=== PATIENT | female | born 1960 | race Caucasian/White ===

== ENCOUNTER 2017-03-27 15:08 | Emergency (ER) | payer OTHER ==
[2017-03-27 17:00] LABS: Hematocrit 33 % (35-47); Hemoglobin 10.4 g/dl (12.0-16.0); Mean Corpuscular HGB Conc 32 g/dl (31-36); Mean Corpuscular Hemoglobin 20 pg (27-31); Mean Platelet Volume 8 um3 (7.4-10.4); Red Blood Count 5.22 10^6/ul (4.0-5.4); Red Cell Distribution Width 18 % (10.5-15)
[2017-03-27 17:05] LABS: Comments Flag Yes; Mean Corpuscular Volume 63 fL (80-97)
[2017-03-27 17:07] LABS: Urine Bacteria Absent (Absent); Urine Bilirubin Negative (Negative); Urine Glucose Negative (Negative); Urine Nitrite Negative (Negative)
[2017-03-27 17:15] LABS: Benzodiazepine Urine Screen None Detected (None Detect)
[2017-03-27 17:16] LABS: ALT 18 U/L (7-52); AST 18 U/L (13-39); Albumin 4.3 g/dL (3.2-5.2); Alkaline Phosphatase 47 U/L (34-104); Anion Gap 5 mmol/L (2-11); Blood Urea Nitrogen 20 mg/dL (6-24); CO2 Carbon Dioxide 27 mmol/L (22-32); Calcium 9.5 mg/dL (8.6-10.3); Chloride 107 mmol/L (101-111); EGFR African American 82.2 (>60); EGFR Non-African American 63.9 (>60); Globulin 2.9 g/dL (2-4); Glucose 89 mg/dL (70-100); Potassium 3.8 mmol/L (3.5-5.0); Sodium 139 mmol/L (133-145); Total Protein 7.2 g/dL (6.4-8.9)
[2017-03-27 17:19] LABS: Acetaminophen < 15 mcg/mL; Alcohol < 10 mg/dL (<10); Lithium < 0.10 mmol/L (0.6-1.2); Salicylate < 2.50 mg/dL (<30)
[2017-03-27 17:24] VITALS: BP 158/76
[2017-03-27 17:25] LABS: TSH (Thyroid Stimulating Horm) 3.51 mcIU/mL (0.34-5.60)
--- NOTE | 2017-03-28 23:01 | ED ---
Annette Mccallum SooYoung, scribed for Pedro Duran MD on 03/27/17 at 1609 . Psychiatric Complaint - HPI Summary HPI Summary: A 56 y/o F presents to ED for MHE/941 due to SI. Pt states she is overwhelmed with her divorce, but denies SI, says her friend was worried which is why she was brought in by police. Associated sx: sleep disruption. Denies changes in PO intake. Pt states being in [place] during the revolution and losing her brother, she didn't leave until 1994. Pert PMHx: PTSD, bipolar disorder. Pt takes Cymbalta and lithium. Denies prev hospitalizations. Out patient treatment for anxiety, depression. Denies ETOH use. - History Of Current Complaint Chief Complaint: EDMentalHealth Time Seen by Provider: 03/27/17 15:42 Hx Obtained From: Patient Onset/Duration: Gradual Onset, Still Present Character: Depressed Associated Signs And Symptoms: Positive: Sleep Disturbance. Negative: Appetite Change Related History: Positive For: Prior Psychiatric Issues Has Suicidal: Reports: Thoughts - denies SI at bedside - Allergies/Home Medications Allergies/Adverse Reactions: Allergies Allergy/AdvReac Type Severity Reaction Status Date / Time No Known Allergies Allergy Verified 10/02/15 13:03 Home Medications: Home Medications DULoxetine DR CAP* [Cymbalta CAP*] 60 mg PO DAILY 03/27/17 [History Confirmed ] Gabapentin CAP(*) [Neurontin 100 mg CAP(*)] 100 mg PO BID 03/27/17 [History Confirmed 03/27/17] [place] Carbonate TAB* 300 mg PO DAILY 03/27/17 [History Confirmed 03/27/17] PMH/Surg Hx/FS Hx/Imm Hx Previously Healthy: No Endocrine/Hematology History: Denies: Hx Diabetes, Hx Thyroid Disease Cardiovascular History: Denies: Hx Congestive Heart Failure, Hx Deep Vein Thrombosis, Hx Hypertension , Hx Myocardial Infarction, Hx Pacemaker/ICD Respiratory History: Denies: Hx Asthma, Hx Chronic Obstructive Pulmonary Disease (COPD), Hx Lung Cancer, Hx Pneumonia, Hx Pulmonary Embolism GI History: Denies: Hx Gall Bladder Disease, Hx Gastrointestinal Bleed, Hx Ulcer, Hx Urosepsis History: Denies: Hx Kidney Stones, Hx Renal Disease Musculoskeletal History: Denies: Hx Rheumatoid Arthritis, Hx Osteoporosis Sensory History: Reports: Hx Contacts or Glasses Opthamlomology History: Reports: Hx Contacts or Glasses Neurological History: Denies: Hx Dementia, Hx Migraine, Hx Seizures, Hx Transient Ischemic Attacks (TIA) Psychiatric History: Reports: Hx Anxiety, Hx Depression, Hx Post Traumatic Stress Disorder, Hx Bipolar Disorder Denies: Hx Eating Disorder, Hx of Violent Episodes Against Others - Surgical History Surgery Procedure, Year, and Place: Appendectomy. B/L carpal tunnel Infectious Disease History: No Infectious Disease History: Denies: Hx Clostridium Difficile, Traveled Outside the [place] in Last 30 Days - Family History Known Family History: Positive: Unknown - Social History Occupation: Unemployed - OTHER Lives: With Family Alcohol Use: None Hx Substance Use: No Substance Use Type: Reports: None Hx Tobacco Use: Yes Smoking Status (MU): Light Every Day Tobacco Smoker Type: Cigarettes Have You Smoked in the Last Year: No Review of Systems Negative: Fever, Chills Negative: Erythema Negative: Sore Throat Negative: Chest Pain Negative: Shortness Of Breath, Cough Negative: Abdominal Pain, Vomiting, Nausea Negative: dysuria, hematuria Negative: Myalgia, Edema Negative: Rash Neurological: Other - neg: dizziness Positive: Anxious, Depressed, Other - pos: tearful; SI All Other Systems Reviewed And Are Negative: Yes Physical Exam - Summary Physical Exam Summary: Constitutional: Well-developed, Well-nourished, Alert. TEARFUL. NO ATAXIA. Skin: Warm, Dry HENT: Normocephalic; Atraumatic Eyes: Conjunctiva normal; NO NYSTAGMUS Neck: Musculoskeletal ROM normal neck. (-) JVD, (-) Stridor, (-) Tracheal deviation Cardio: Rhythm regular, rate normal, Heart sounds normal; Intact distal pulses; The pedal pulses are 2+ and symmetric. Radial pulses are 2+ and symmetric. (-) Murmur Pulmonary/Chest wall: Effort normal. (-) Respiratory distress, (-) Wheezes, (-) Rales Abd: Soft, (-) Tenderness, (-) Distension, (-) Guarding, (-) Rebound Musculoskeletal: (-) Edema Lymph: (-) Cervical adenopathy Neuro: Alert, Oriented x3 Psych: TEARFUL Triage Information Reviewed: Yes Vital Signs On Initial Exam: Initial Vitals Temp Pulse Resp BP Pulse Ox 98.1 F 75 18 165/97 100 03/27/17 15:13 03/27/17 15:13 03/27/17 15:13 03/27/17 15:13 03/27/17 15:13 Vital Signs Reviewed: Yes Diagnostics - Vital Signs Vital Signs Temp Pulse Resp BP Pulse Ox 03/27/17 15:27 99 F 75 18 165/97 100 03/27/17 15:13 98.1 F 75 18 165/97 100 - Laboratory Lab Results: Lab Results 03/27/17 03/27/17 03/27/17 Range/Units 16:39 16:39 16:39 WBC 8.0 (3.5-10.8) 10^3/ul RBC 5.22 (4.0-5.4) 10^6/ul Hgb 10.4 L (12.0-16.0) g/dl Hct 33 L (35-47) % MCV 63 L (80-97) fL MCH 20 L (27-31) pg MCHC 32 (31-36) g/dl RDW 18 H (10.5-15) % Plt Count 262 (150-450) 10^3/ul MPV 8 (7.4-10.4) um3 Neut % (Auto) 80.0 (38-83) % Lymph % (Auto) 13.0 L (25-47) % [place] % (Auto) 5.0 (1-9) % Eos % (Auto) 1.4 (0-6) % Baso % (Auto) 0.6 (0-2) % Absolute Neuts (auto) 6.4 (1.5-7.7) 10^3/ul Absolute Lymphs (auto) 1.0 (1.0-4.8) 10^3/ul Absolute Monos (auto) 0.4 (0-0.8) 10^3/ul Absolute Eos (auto) 0.1 (0-0.6) 10^3/ul Absolute Basos (auto) 0 (0-0.2) 10^3/ul Absolute Nucleated RBC 0 10^3/ul Nucleated RBC % 0 Sodium 139 (133-145) mmol/L Potassium 3.8 (3.5-5.0) mmol/L Chloride 107 (101-111) mmol/L Carbon Dioxide 27 (22-32) mmol/L Anion Gap 5 (2-11) mmol/L BUN 20 (6-24) mg/dL Creatinine 0.91 (0.51-0.95) mg/dL Est GFR ( Amer) 82.2 (>60) Est GFR (Non-Af Amer) 63.9 (>60) BUN/Creatinine Ratio 22.0 H (8-20) Glucose 89 (70-100) mg/dL Calcium 9.5 (8.6-10.3) mg/dL Total Bilirubin 0.50 (0.2-1.0) mg/dL AST 18 (13-39) U/L ALT 18 (7-52) U/L Alkaline Phosphatase 47 (34-104) U/L Total Protein 7.2 (6.4-8.9) g/dL Albumin 4.3 (3.2-5.2) g/dL Globulin 2.9 (2-4) g/dL Albumin/Globulin Ratio 1.5 (1-3) TSH 3.51 (0.34-5.60) mcIU/mL Urine Color Straw Urine Appearance Clear Urine pH 6.0 (5-9) Ur Specific [place] 1.006 L (1.010-1.030) Urine Protein Negative (Negative) Urine Ketones Negative (Negative) Urine Blood 1+ H (Negative) Urine Nitrate Negative (Negative) Urine Bilirubin Negative (Negative) Urine Urobilinogen Negative (Negative) Ur Leukocyte Esterase 1+ H (Negative) Urine WBC (Auto) Trace(0-5/hpf) (Absent) Urine RBC (Auto) Trace(0-2/hpf) (Absent) Urine Bacteria Absent (Absent) Urine Glucose Negative (Negative) Salicylates < 2.50 (<30) mg/dL Urine Opiates Screen (None Detect) Acetaminophen < 15 mcg/mL Ur Barbiturates Screen (None Detect) Ur Phencyclidine Scrn (None Detect) Ur Amphetamines Screen (None Detect) U Benzodiazepines Scrn (None Detect) [place] < 0.10 L (0.6-1.2) mmol/L Urine Cocaine Screen (None Detect) U Cannabinoids Screen (None Detect) Serum Alcohol < 10 (<10) mg/dL 03/27/17 Range/Units 16:39 WBC (3.5-10.8) 10^3/ul RBC (4.0-5.4) 10^6/ul Hgb (12.0-16.0) g/dl Hct (35-47) % MCV (80-97) fL MCH (27-31) pg MCHC (31-36) g/dl RDW (10.5-15) % Plt Count (150-450) 10^3/ul MPV (7.4-10.4) um3 Neut % (Auto) (38-83) % Lymph % (Auto) (25-47) % [place] % (Auto) (1-9) % Eos % (Auto) (0-6) % Baso % (Auto) (0-2) % Absolute Neuts (auto) (1.5-7.7) 10^3/ul Absolute Lymphs (auto) (1.0-4.8) 10^3/ul Absolute Monos (auto) (0-0.8) 10^3/ul Absolute Eos (auto) (0-0.6) 10^3/ul Absolute Basos (auto) (0-0.2) 10^3/ul Absolute Nucleated RBC 10^3/ul Nucleated RBC % Sodium (133-145) mmol/L Potassium (3.5-5.0) mmol/L Chloride (101-111) mmol/L Carbon Dioxide (22-32) mmol/L Anion Gap (2-11) mmol/L BUN (6-24) mg/dL Creatinine (0.51-0.95) mg/dL Est GFR ( Amer) (>60) Est GFR (Non-Af Amer) (>60) BUN/Creatinine Ratio (8-20) Glucose (70-100) mg/dL Calcium (8.6-10.3) mg/dL Total Bilirubin (0.2-1.0) mg/dL AST (13-39) U/L ALT (7-52) U/L Alkaline Phosphatase (34-104) U/L Total Protein (6.4-8.9) g/dL Albumin (3.2-5.2) g/dL Globulin (2-4) g/dL Albumin/Globulin Ratio (1-3) TSH (0.34-5.60) mcIU/mL Urine Color Urine Appearance Urine pH (5-9) Ur Specific [place] (1.010-1.030) Urine Protein (Negative) Urine Ketones (Negative) Urine Blood (Negative) Urine Nitrate (Negative) Urine Bilirubin (Negative) Urine Urobilinogen (Negative) Ur Leukocyte Esterase (Negative) Urine WBC (Auto) (Absent) Urine RBC (Auto) (Absent) Urine Bacteria (Absent) Urine Glucose (Negative) Salicylates (<30) mg/dL Urine Opiates Screen None detected (None Detect) Acetaminophen mcg/mL Ur Barbiturates Screen None detected (None Detect) Ur Phencyclidine Scrn None detected (None Detect) Ur Amphetamines Screen None detected (None Detect) U Benzodiazepines Scrn None detected (None Detect) [place] (0.6-1.2) mmol/L Urine Cocaine Screen None detected (None Detect) U Cannabinoids Screen None detected (None Detect) Serum Alcohol (<10) mg/dL Result Diagrams: 03/27/17 16:39 03/27/17 16:39 Lab Statement: Any lab studies that have been ordered have been reviewed, and results considered in the medical decision making process. Course/Dx - Course Course Of Treatment: Pt is a 56 y/o F presenting for E/941. Pt states she is overwhelmed with her divorce, but denies SI at bedside. Associated sx: sleep disruption. Denies changes in PO intake. Pert PMHx: PTSD, bipolar disorder. Pt takes Cymbalta and lithium. Denies prev hospitalizations. Denies ETOH use. Pt is medically clear for MHE at 1610. SO pending MHE. - Differential Dx/Clinical Impression Provider Diagnosis: Suicidal ideation Discharge - Discharge Plan Condition: Stable Disposition: HOME Discharge Disposition Comment: SO pending MHE. Referrals: Emily Cantrell MD [Primary Care Provider] - Additional Instructions: Return to the emergency department for changing or worsening or persistent symptoms. The documentation as recorded by the Annette bustillos SooYoung accurately reflects the service I personally performed and the decisions made by , Pedro Duran MD.
== END 2017-03-27 20:12 | disposition home or self-care (01) ==
LOC: ED 15:08
DX: F32.9 Major depressive disorder, single episode, unspecified (principal); R45.851 Suicidal ideations; F41.9 Anxiety disorder, unspecified
CPT/HCPCS: 36415; 80053; 80178; 80307; 80320; 80329; 81003; 81015; 84443; 85025; 87086; 99283; G0480

== ENCOUNTER 2018-01-20 17:37 | Emergency (ER) | payer OTHER, MEDICAID ==
--- NOTE | 2018-01-20 21:53 | RAD ---
CLINICAL HISTORY: Left flank pain. Relevant surgical history includes appendectomy. COMPARISON: None TECHNIQUE: Noncontrast CT examination of the abdomen and pelvis from the lung bases through the initial tuberosities. FINDINGS: VISUALIZED LUNG BASES: The visualized lung bases are grossly clear. There is no pleural effusion. ABDOMEN AND PELVIS: Evaluation of the solid organs and vasculature is limited without intravenous contrast. The liver, spleen, pancreas and adrenal glands are grossly normal in appearance. The gallbladder is normal. The kidneys are normal in appearance without focal mass, calcification or signs of hydronephrosis. Evaluation of the gastrointestinal tract is limited without oral contrast. The small and large bowel are not distended. Consistent with the patient's surgical history, the appendix is not seen. There are surgical material at the base of the cecum. There is gas and stool throughout the length of the colon. There is no gross retroperitoneal or mesenteric lymphadenopathy. There is trace free fluid in the dependent-most portion of the pelvis (axial image 111). The pelvic viscera is normal in appearance. The abdominal aorta and iliac arteries are normal in course and diameter. Degenerative changes include mild multilevel loss of intervertebral disc height involving the lower thoracic and lumbar spine.There are no sinister bone lesions. IMPRESSION: 1. Trace free fluid in the dependent-most portion of the pelvis. 2. No renal calculi or signs of hydronephrosis. 3. Chronic, degenerative and iatrogenic findings as described by the report.
[2018-01-20 21:57] LABS: ABS Basophils 0.1 10^3/ul (0-0.2); ABS Eosinophils 0.4 10^3/ul (0-0.6); ABS Lymphocytes 1.7 10^3/ul (1.0-4.8); ABS Monocytes 0.4 10^3/ul (0-0.8); ABS Nucleated RBC 0 10^3/ul; Eosinophil % 6.3 % (0-6); Hematocrit 34 % (35-47); Lymphocyte % 25.6 % (25-47); Mean Corpuscular HGB Conc 33 g/dl (31-36); Mean Corpuscular Hemoglobin 20 pg (27-31); Mean Corpuscular Volume 63 fL (80-97); Mean Platelet Volume 8.4 um3 (7.4-10.4); Nucleated Red Blood Cells % 0.1; Platelet Count 297 10^3/ul (150-450); Red Cell Distribution Width 17 % (10.5-15); White Blood Count 6.5 10^3/ul (3.5-10.8)
[2018-01-20 22:07] LABS: EGFR Non-African American 58.5 (>60)
[2018-01-20 22:15] LABS: INR 11.09 (0.77-1.02)
[2018-01-20 22:22] LABS: Urine Appearance Clear; Urine Blood 2+ (Negative); Urine Color Yellow; Urine Ketones Negative (Negative); Urine Protein Negative (Negative); Urine Specific Gravity 1.011 (1.010-1.030); Urine Urobilinogen Negative (Negative)
--- NOTE | 2018-01-20 22:47 | ED ---
Elvi Mccallum Emily, scribed for Kenny Olvera MD on 01/20/18 at 2032 . Abdominal Pain/Female - HPI Summary HPI Summary: This patient is a 57 year old F presenting to [facility] with a chief complaint of diffuse abd pain that began [employer]. The patient rates the pain 8/10 in severity. Symptoms aggravated by nothing. Symptoms alleviated by nothing. Patient reports pelvic pain, fever, and SOB. Patient denies diarrhea and cough. - History of Current Complaint Chief Complaint: EDAbdPain Stated Complaint: ABD PAIN/SOB Hx Obtained From: Patient Onset/Duration: Sudden Onset, Lasting Days, Still Present Timing: Constant Severity Initially: Severe Severity Currently: Severe Pain Intensity: 8 Pain Scale Used: 0-10 Numeric Location: Diffuse Radiates: No Aggravating Factor(s): Nothing Alleviating Factor(s): Nothing Associated Signs and Symptoms: Positive: Other: - Positive pelvic pain, fever, and SOB. Negative diarrhea and cough. Allergies/Adverse Reactions: Allergies Allergy/AdvReac Type Severity Reaction Status Date / Time aspirin Allergy GI Upset Verified 01/20/18 20:45 PMH/Surg Hx/FS Hx/Imm Hx Previously Healthy: No Endocrine/Hematology History: Denies: Hx Diabetes, Hx Thyroid Disease Cardiovascular History: Denies: Hx Congestive Heart Failure, Hx Deep Vein Thrombosis, Hx Hypertension , Hx Myocardial Infarction, Hx Pacemaker/ICD Respiratory History: Denies: Hx Asthma, Hx Chronic Obstructive Pulmonary Disease (COPD), Hx Lung Cancer, Hx Pneumonia, Hx Pulmonary Embolism GI History: Denies: Hx Gall Bladder Disease, Hx Gastrointestinal Bleed, Hx Ulcer, Hx Urosepsis History: Denies: Hx Kidney Stones, Hx Renal Disease Musculoskeletal History: Denies: Hx Rheumatoid Arthritis, Hx Osteoporosis Sensory History: Reports: Hx Contacts or Glasses Opthamlomology History: Reports: Hx Contacts or Glasses Neurological History: Denies: Hx Dementia, Hx Migraine, Hx Seizures, Hx Transient Ischemic Attacks (TIA) Psychiatric History: Reports: Hx Anxiety, Hx Depression, Hx Post Traumatic Stress Disorder, Hx Bipolar Disorder Denies: Hx Eating Disorder, Hx of Violent Episodes Against Others - Surgical History Surgery Procedure, Year, and Place: Appendectomy. B/L carpal tunnel Infectious Disease History: No Infectious Disease History: Denies: Hx Clostridium Difficile, Traveled Outside the [place] in Last 30 Days - Family History Known Family History: Positive: Unknown - Social History Occupation: Unemployed Lives: Alone Alcohol Use: None Hx Substance Use: No Substance Use Type: Reports: None Hx Tobacco Use: Yes Smoking Status (MU): Light Every Day Tobacco Smoker Type: Cigarettes Have You Smoked in the Last Year: No Review of Systems Positive: Fever Positive: Shortness Of Breath. Negative: Cough Positive: Abdominal Pain. Negative: Diarrhea Positive: Other - Positive pelvic pain All Other Systems Reviewed And Are Negative: Yes Physical Exam - Summary Physical Exam Summary: Appearance: Well-appearing, Well-nourished Skin: Warm Eyes: Normal ENT: Normal Neck: Supple, nontender Respiratory: Clear to auscultation Cardiovascular: Regular rate, regular rhythm. Normal S1, S2. Abdomen: Soft, mild diffuse tenderness Musculoskeletal: Normal, Strength/ROM Intact Neurological: Normal, A&Ox3 Psychiatric: Normal General: No acute distress Triage Information Reviewed: Yes Vital Signs On Initial Exam: Initial Vitals Temp Pulse Resp BP Pulse Ox 98.7 F 74 16 151/90 100 01/20/18 17:49 01/20/18 17:49 01/20/18 17:49 01/20/18 17:49 01/20/18 17:49 Vital Signs Reviewed: Yes Abdomen Description: Positive: Soft, Distended Diagnostics - Vital Signs Vital Signs Temp Pulse Resp BP Pulse Ox 01/20/18 17:49 98.7 F 74 16 151/90 100 - Laboratory Lab Results: Lab Results 01/20/18 01/20/18 01/20/18 Range/Units 21:35 21:35 21:35 WBC 6.5 (3.5-10.8) 10^3/ul RBC 5.40 (4.0-5.4) 10^6/ul Hgb 11.0 L (12.0-16.0) g/dl Hct 34 L (35-47) % MCV 63 L (80-97) fL MCH 20 L (27-31) pg MCHC 33 (31-36) g/dl RDW 17 H (10.5-15) % Plt Count 297 (150-450) 10^3/ul MPV 8.4 (7.4-10.4) um3 Neut % (Auto) 61.3 (38-83) % Lymph % (Auto) 25.6 (25-47) % [place] % (Auto) 5.8 (0-7) % Eos % (Auto) 6.3 H (0-6) % Baso % (Auto) 1.0 (0-2) % Absolute Neuts (auto) 4.0 (1.5-7.7) 10^3/ul Absolute Lymphs (auto) 1.7 (1.0-4.8) 10^3/ul Absolute Monos (auto) 0.4 (0-0.8) 10^3/ul Absolute Eos (auto) 0.4 (0-0.6) 10^3/ul Absolute Basos (auto) 0.1 (0-0.2) 10^3/ul Absolute Nucleated RBC 0 10^3/ul Nucleated RBC % 0.1 INR (Anticoag Therapy) 11.09 H* (0.77-1.02) Sodium 138 L (139-145) mmol/L Potassium 3.9 (3.5-5.0) mmol/L Chloride 105 (101-111) mmol/L Carbon Dioxide 28 (22-32) mmol/L Anion Gap 5 (2-11) mmol/L BUN 15 (6-24) mg/dL Creatinine 0.98 H (0.51-0.95) mg/dL Est GFR ( Amer) 75.2 (>60) Est GFR (Non-Af Amer) 58.5 (>60) BUN/Creatinine Ratio 15.3 (8-20) Glucose 89 (70-100) mg/dL Lactic Acid (0.5-2.0) mmol/L Calcium 9.8 (8.6-10.3) mg/dL Total Bilirubin 0.20 (0.2-1.0) mg/dL AST 17 (13-39) U/L ALT 13 (7-52) U/L Alkaline Phosphatase 70 (34-104) U/L Troponin I 0.00 (<0.04) ng/mL C-Reactive Protein < 1.00 (< 5.00) mg/L Total Protein 7.6 (6.4-8.9) g/dL Albumin 4.6 (3.2-5.2) g/dL Globulin 3.0 (2-4) g/dL Albumin/Globulin Ratio 1.5 (1-3) Lipase 15 (11.0-82.0) U/L Urine Color Urine Appearance Urine pH (5-9) Ur Specific [place] (1.010-1.030) Urine Protein (Negative) Urine Ketones (Negative) Urine Blood (Negative) Urine Nitrate (Negative) Urine Bilirubin (Negative) Urine Urobilinogen (Negative) Ur Leukocyte Esterase (Negative) Urine WBC (Auto) (Absent) Urine RBC (Auto) (Absent) Ur Squamous Epith Cells (Absent) Urine Bacteria (Absent) Urine Glucose (Negative) 01/20/18 01/20/18 Range/Units 21:35 22:00 WBC (3.5-10.8) 10^3/ul RBC (4.0-5.4) 10^6/ul Hgb (12.0-16.0) g/dl Hct (35-47) % MCV (80-97) fL MCH (27-31) pg MCHC (31-36) g/dl RDW (10.5-15) % Plt Count (150-450) 10^3/ul MPV (7.4-10.4) um3 Neut % (Auto) (38-83) % Lymph % (Auto) (25-47) % [place] % (Auto) (0-7) % Eos % (Auto) (0-6) % Baso % (Auto) (0-2) % Absolute Neuts (auto) (1.5-7.7) 10^3/ul Absolute Lymphs (auto) (1.0-4.8) 10^3/ul Absolute Monos (auto) (0-0.8) 10^3/ul Absolute Eos (auto) (0-0.6) 10^3/ul Absolute Basos (auto) (0-0.2) 10^3/ul Absolute Nucleated RBC 10^3/ul Nucleated RBC % INR (Anticoag Therapy) (0.77-1.02) Sodium (139-145) mmol/L Potassium (3.5-5.0) mmol/L Chloride (101-111) mmol/L Carbon Dioxide (22-32) mmol/L Anion Gap (2-11) mmol/L BUN (6-24) mg/dL Creatinine (0.51-0.95) mg/dL Est GFR ( Amer) (>60) Est GFR (Non-Af Amer) (>60) BUN/Creatinine Ratio (8-20) Glucose (70-100) mg/dL Lactic Acid 0.7 (0.5-2.0) mmol/L Calcium (8.6-10.3) mg/dL Total Bilirubin (0.2-1.0) mg/dL AST (13-39) U/L ALT (7-52) U/L Alkaline Phosphatase (34-104) U/L Troponin I (<0.04) ng/mL C-Reactive Protein (< 5.00) mg/L Total Protein (6.4-8.9) g/dL Albumin (3.2-5.2) g/dL Globulin (2-4) g/dL Albumin/Globulin Ratio (1-3) Lipase (11.0-82.0) U/L Urine Color Yellow Urine Appearance Clear Urine pH 6.0 (5-9) Ur Specific [place] 1.011 (1.010-1.030) Urine Protein Negative (Negative) Urine Ketones Negative (Negative) Urine Blood 2+ A (Negative) Urine Nitrate Negative (Negative) Urine Bilirubin Negative (Negative) Urine Urobilinogen Negative (Negative) Ur Leukocyte Esterase Trace A (Negative) Urine WBC (Auto) 1+(6-10/hpf) A (Absent) Urine RBC (Auto) 3+(>10/hpf) A (Absent) Ur Squamous Epith Cells Present A (Absent) Urine Bacteria Absent (Absent) Urine Glucose Negative (Negative) Result Diagrams: 01/20/18 21:35 01/20/18 21:35 Lab Statement: Any lab studies that have been ordered have been reviewed, and results considered in the medical decision making process. - CT CT Abdomen/Pelvis CT Interpretation Completed By: Radiologist - Abdomen/Pelvis CT reveals, per radiologist, 1. Trace free fluid in the dependent-most portion of the pelvis. 2. No renal calculi or signs of hydronephrosis. 3. Chronic, degenerative and iatrogenic findings as described by the report. ED physician has reviewed this radiology report. - EKG 1912 Cardiac Rate: NL EKG Rhythm: Sinus Rhythm - 61 BPM EKG Interpretation: No STT wave changes or T wave inversions Abdominal Pain Fem Course/Dx - Course Course Of Treatment: INR 11- pt NOT on any blood thinner medication per pt, but exhibits no signs of bleed. UA mildly dirty- pt has No urinary sx. CT A&P no abd pathology to explain pt's current sx, except some bowel gas - Diagnoses Provider Diagnoses: Abdomen enlarged, Abdominal distension, gaseous Discharge - Sign-Out/Discharge Documenting (check all that apply): Discharge - Discharge Plan Condition: Stable Disposition: HOME Patient Education Materials: Gas and Bloating (ED) Referrals: Emily Cantrell MD [Primary Care Provider] - Additional Instructions: please follow up with your primary doctor for re-check of your elevated INR - Billing Disposition and Condition Condition: STABLE Disposition: HOME The documentation as recorded by the Elvi bustillos Emily accurately reflects the service I personally performed and the decisions made by , Kenny Olvera MD.
[2018-01-20] MEDS ORDERED: Phytonadione INJ (Adult)* 10 MG/ML 1 ML AMP SUBCUT ONE (23:08)
[2018-01-21 00:41] LABS: INR 11.46 (0.77-1.02)
[2018-01-21 01:25] VITALS: BP 114/63
== END 2018-01-21 01:26 | disposition home or self-care (01) ==
LOC: ED 17:37
DX: R14.0 Abdominal distension (gaseous) (principal); F17.210 Nicotine dependence, cigarettes, uncomplicated
CPT/HCPCS: 36415; 74176; 80053; 81003; 81015; 83605; 83690; 84484; 85025; 85610; 86140; 87086; 93005; 96372; 99283; J3430

== ENCOUNTER 2018-01-22 13:58 | Emergency (ER) | payer OTHER, MEDICAID ==
[2018-01-22 14:18] VITALS: BP 133/80
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
== END 2018-01-22 14:40 | disposition home or self-care (01) ==
LOC: UCEAST 13:58
DX: R10.9 Unspecified abdominal pain (principal); D68.9 Coagulation defect, unspecified; Z87.891 Personal history of nicotine dependence; Z88.6 Allergy status to analgesic agent; Z88.8 Allergy status to other drugs, medicaments and biological substances
CPT/HCPCS: 99212; G0463

== ENCOUNTER 2018-01-25 11:02 | Inpatient (IN) | payer OTHER, MEDICAID ==
[2018-01-25 12:18] LABS: ABS Basophils 0.1 10^3/ul (0-0.2); ABS Eosinophils 0.5 10^3/ul (0-0.6); ABS Lymphocytes 1.1 10^3/ul (1.0-4.8); ABS Monocytes 0.5 10^3/ul (0-0.8); ABS Neutrophils 5.8 10^3/ul (1.5-7.7); ABS Nucleated RBC 0 10^3/ul; Eosinophil % 6.1 % (0-6); Hematocrit 30 % (35-47); Hemoglobin 9.5 g/dl (12.0-16.0); Mean Corpuscular HGB Conc 32 g/dl (31-36); Mean Corpuscular Hemoglobin 20 pg (27-31); Mean Corpuscular Volume 63 fL (80-97); Mean Platelet Volume 8.4 um3 (7.4-10.4); Nucleated Red Blood Cells % 0; Platelet Count 237 10^3/ul (150-450); Red Blood Count 4.74 10^6/ul (4.0-5.4); Red Cell Distribution Width 17 % (10.5-15); White Blood Count 7.9 10^3/ul (3.5-10.8)
--- OUTSIDE RECORDS SUMMARY | 2018-01-25 12:24 | XMS REPORT ---
:1960 External Reference #:[id number] Author Organization [employer] Address [address] [address] Phone [phone] Care Team Providers Name Role Phone Emily Cantrell MD Primary Care Physician Unavailable Payers Type Date Identification Numbers Payment Provider Subscriber Commercial Effective: Policy Number: [id number] [employer] ayanna rizvi 2013 PayID: [id number] [address] [place] [address] Medigap Part B Policy Number: [id number] Medicaid [employer] Name: 1 1 [address] PayID: [id number] [place] [address] Problems Date Description Provider Status Onset: 11/22/2013 Depressive disorder Emily Cantrell M.D. Active Onset: 06/28/2016 Thalassemia Emily Cantrell M.D. 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 - allow to dissolve slowly Gabapentin 09/25/ Active Capsules 300mg 90cap 1 by mouth 2016 s at hs Desmond Cantrell Duloxetine HCL 09/25/ Active Caps 30mg 30cap 3 by mouth 2016 Part s every day Qamar Cantrell. Lorazepam 09/25/ Active Tablets 1mg 60tab 2 po qd as 2016 s needed for [place], anxiety M.D. Gabapentin 08/27/ Active Capsules 100mg 60cap take 1-3 M25.511 2014 s capsules at [place], bedtime M.D. [place] / Active Capsules 300mg 30cap 1 by mouth Juan, Carbonate 0000 s every Lidia morning LADARIUS Giron PHD Amoxicillin / Active Tablets 875mg take 2 Unknown 0000 tablets by mouth immediately then take 1 tablet twice a day Ketorolac / Active Tablets 10mg Not Unknown Tromethamine 0000 taking----ta ke 2 tablets by mouth every 4 to 6 hours Post Injection Then 1 ... Prevacid 06/28/ Hx Capsules 30mg 30cap 1 by mouth R10.13 Emily 2016 - s every day [place], M.D. 2015 Tramadol HCL 08/27/ Hx Tablets 50mg 30tab 1-2 tablets 2013 - s every 4-6 [place], 08/19/ hours as M.D. 2015 needed for pain. Lexapro 11/22/ Hx Tablets 20mg 30tab 1 po qd 2013 - s [place], M.D. 2013 Escitalopram / Hx Tablets 20mg not taking Juan, Oxalate 0000 - Lidia 12/18/ LADARIUS Giron 2017 PHD Lorazepam / Hx Tablets 1mg 1 once daily Unknown 0000 - as needed 2014 Immunizations CPT Code Status Date Vaccine Lot # [id number] Given 08/27/2015 Influenza Virus Vaccine, Quadrivalent, Split, [id number] Preservative Free [id number] Given 05/31/2014 Flu Vaccine Split Virus Preservative Free For Indiv 3Yr Older Vital Signs Date Vital Result Comment 01/23/2018 Weight 134.00 lb Heart Rate 66 /min BP Systolic 124 mmHg BP Diastolic 72 mmHg Body Temperature 97.3 F O2 % BldC Oximetry 98 % 12/15/2017 Weight 137.00 lb Heart Rate 71 /min BP Systolic Sitting 138 mmHg BP Diastolic Sitting 82 mmHg Pain Level 5 O2 % BldC Oximetry 98 % 09/25/2017 Height 61.5 inches 5'1.50" Weight 123.00 lb Heart Rate 71 /min BP Systolic 120 mmHg BP Diastolic 70 mmHg O2 % BldC Oximetry 98 % BMI (Body Mass Index) 22.9 kg/m2 08/19/2016 Weight 117.00 lb Heart Rate 57 /min BP Systolic 122 mmHg BP Diastolic 70 mmHg Body Temperature 98.5 F O2 % BldC Oximetry 98 % 06/28/2016 Weight 118.00 lb with shoes Heart Rate 84 /min BP Systolic Sitting 120 mmHg BP Diastolic Sitting 72 mmHg Body Temperature 97.1 F O2 % BldC Oximetry 98 % 11/26/2015 Height 61.5 inches 5'1.50" Weight 134.00 lb Heart Rate 60 /min BP Systolic Sitting 130 mmHg BP Diastolic Sitting 66 mmHg Respiratory Rate 14 /min Body Temperature 97.4 F Pain Level 0 O2 % BldC Oximetry 99 % BMI (Body Mass Index) 24.9 kg/m2 08/27/2015 Weight 137.75 lb pt doesnt want to know Heart Rate 62 /min BP Systolic Sitting 139 mmHg BP Diastolic Sitting 82 mmHg Body Temperature 98.4 F Pain Level 5 O2 % BldC Oximetry 98 % 04/08/2015 Weight 131.00 lb Heart Rate 70 /min BP Systolic Sitting 118 mmHg BP Diastolic Sitting 77 mmHg Body Temperature 97.7 F 03/18/2015 Height 61.75 inches 5'1.75" Weight 131.50 lb Heart Rate 65 /min BP Systolic Sitting 110 mmHg BP Diastolic Sitting 70 mmHg Pain Level 8 O2 % BldC Oximetry 98 % BMI (Body Mass Index) 24.2 kg/m2 11/25/2014 Height 61.75 inches 5'1.75" Weight 133.00 lb Heart Rate 64 /min BP Systolic Sitting 125 mmHg BP Diastolic Sitting 78 mmHg O2 % BldC Oximetry 98 % BMI (Body Mass Index) 24.5 kg/m2 08/27/2014 Height 61.75 inches 5'1.75" Weight 128.00 lb Heart Rate 68 /min BP Systolic Sitting 124 mmHg BP Diastolic Sitting 70 mmHg BMI (Body Mass Index) 23.6 kg/m2 08/04/2014 Height 61.75 inches 5'1.75" Weight 128.00 lb shoes on Heart Rate 84 /min BP Systolic Sitting 118 mmHg BP Diastolic Sitting 70 mmHg BMI (Body Mass Index) 23.6 kg/m2 11/22/2013 Height 61.75 inches 5'1.75" Weight 124.00 lb Heart Rate 76 /min BP Systolic Sitting 118 mmHg BP Diastolic Sitting 72 mmHg Respiratory Rate 16 /min Body Temperature 98.9 F BMI (Body Mass Index) 22.9 kg/m2 Results Test Date Test Result H/L Range Note Inr/Protime 01/20/2018 Inr 11.46 High 0.77-1.02 1 Urinalysis Profile 01/20/2018 Urine Color Yellow Urine Appearance Clear Urine Specific [place] 1.011 1.010-1.030 Urine pH 6.0 5-9 Urine Urobilinogen Negative Negative Urine Ketones Negative Negative Urine Protein Negative Negative Urine Leukocytes Trace Negative Urine Blood 2+ Negative Urine Nitrite Negative Negative Urine Bilirubin Negative Negative Urine Glucose Negative Negative Urine White Blood Cell 1+(6-10/hpf) Absent Urine Red Blood Cell 3+(>10/hpf) Absent Urine Bacteria Absent Absent Urine Squamous Epithelial Cell Present Absent Urine Culture And 01/20/2018 Urine Culture SEE RESULT BELOW 2 Sensitivities CBC Auto Diff 01/20/2018 White Blood Count 6.5 10^3/uL 3.5-10.8 Red Blood Count 5.40 10^6/uL 4.0-5.4 Hemoglobin 11.0 g/dL Low 12.0-16.0 Hematocrit 34 % Low 35-47 Mean Corpuscular Volume 63 fL Low 80-97 3 Mean Corpuscular Hemoglobin 20 pg Low 27-31 Mean Corpuscular HGB Conc 33 g/dL 31-36 Red Cell Distribution Width 17 % High 10.5-15 Platelet Count 297 10^3/uL 150-450 Mean Platelet Volume 8.4 um3 7.4-10.4 Abs Neutrophils 4.0 10^3/uL 1.5-7.7 Abs Lymphocytes 1.7 10^3/uL 1.0-4.8 Abs Monocytes 0.4 10^3/uL 0-0.8 Abs Eosinophils 0.4 10^3/uL 0-0.6 Abs Basophils 0.1 10^3/uL 0-0.2 Abs Nucleated RBC 0 10^3/uL Granulocyte % 61.3 % 38-83 Lymphocyte % 25.6 % 25-47 Monocyte % 5.8 % 0-7 Eosinophil % 6.3 % High 0-6 Basophil % 1.0 % 0-2 Nucleated Red Blood Cells % 0.1 Laboratory test finding 01/20/2018 Lactic Acid 0.7 mmol/L 0.5-2.0 4 Comp Metabolic Panel 01/20/2018 Sodium 138 mmol/L Low 139-145 Potassium 3.9 mmol/L 3.5-5.0 Chloride 105 mmol/L 101-111 Co2 Carbon Dioxide 28 mmol/L 22-32 Anion Gap 5 mmol/L 2-11 Glucose 89 mg/dL 70-100 Blood Urea Nitrogen 15 mg/dL 6-24 Creatinine 0.98 mg/dL High 0.51-0.95 BUN/Creatinine Ratio 15.3 8-20 Calcium 9.8 mg/dL 8.6-10.3 Total Protein 7.6 g/dL 6.4-8.9 Albumin 4.6 g/dL 3.2-5.2 Globulin 3.0 g/dL 2-4 Albumin/Globulin Ratio 1.5 1-3 Total Bilirubin 0.20 mg/dL 0.2-1.0 Alkaline Phosphatase 70 U/L 34-104 Alt 13 U/L 7-52 Ast 17 U/L 13-39 Egfr Non- 58.5 >60 Egfr 75.2 >60 5 Laboratory test finding 01/20/2018 Lipase 15 U/L 11.0-82.0 C Reactive Protein < 1.00 mg/L < 5.00 6 Troponin-I (TnI) 0.00 ng/mL <0.04 Inr/Protime 01/20/2018 Inr 11.09 High 0.77-1.02 7 Ua Routine 12/15/2017 Ua Specific [place] 1.015 Ua PH 5 Ua Color yellow Ua Appera clear Ua WBC - Ua Protein - Ua Glucose norm Ua Ketones - Ua Bilirubin - Ua Urobilinogen - Ua Nitrite - Ua Occult Blood 250 Urine Culture And Sensitivities 09/25/2017 Urine Culture SEE RESULT BELOW 8 Urinalysis Profile 09/25/2017 Urine Color Yellow Urine Appearance Clear Urine Specific [place] 1.019 1.010-1.030 Urine pH 5.0 5-9 Urine Urobilinogen Negative Negative Urine Ketones Negative Negative Urine Protein Negative Negative Urine Leukocytes Negative Negative Urine Blood 1+ Negative * * Negative 9 Urine Nitrite Negative Negative Urine Bilirubin Negative Negative Urine Glucose Negative Negative Urine White Blood Cell Trace(0-5/hpf) Absent Urine Red Blood Cell 1+(3-5/hpf) Absent Urine Bacteria 1+ Absent Urine Squamous Epithelial Cell Present Absent Laboratory test finding 09/25/2017 TSH (Thyroid Stim Horm) 3.34 mcIU/mL 0.34-5.60 Basic Metabolic Panel 09/25/2017 Sodium 136 mmol/L 133-145 Potassium 4.4 mmol/L 3.5-5.0 Chloride 104 mmol/L 101-111 Co2 Carbon Dioxide 29 mmol/L 22-32 Anion Gap 3 mmol/L 2-11 Glucose 85 mg/dL 70-100 Blood Urea Nitrogen 30 mg/dL High 6-24 Creatinine 0.89 mg/dL 0.51-0.95 BUN/Creatinine Ratio 33.7 High 8-20 Calcium 9.3 mg/dL 8.6-10.3 Egfr Non- 65.4 >60 Egfr 84.1 >60 10 Urine Culture And 03/27/2017 Urine Culture SEE RESULT BELOW 11 Sensitivities Laboratory test finding 03/27/2017 [place] < 0.10 mmol/L Low 0.6-1.2 Acetaminophen < 15 g/mL 12 Alcohol < 10 mg/dL <10 Salicylate < 2.50 mg/dL <30 TSH (Thyroid Stim Horm) 3.51 mcIU/mL 0.34-5.60 Comp Metabolic Panel 03/27/2017 Sodium 139 mmol/L 133-145 Potassium 3.8 mmol/L 3.5-5.0 Chloride 107 mmol/L 101-111 Co2 Carbon Dioxide 27 mmol/L 22-32 Anion Gap 5 mmol/L 2-11 Glucose 89 mg/dL 70-100 Blood Urea Nitrogen 20 mg/dL 6-24 Creatinine 0.91 mg/dL 0.51-0.95 BUN/Creatinine Ratio 22.0 High 8-20 Calcium 9.5 mg/dL 8.6-10.3 Total Protein 7.2 g/dL 6.4-8.9 Albumin 4.3 g/dL 3.2-5.2 Globulin 2.9 g/dL 2-4 Albumin/Globulin Ratio 1.5 1-3 Total Bilirubin 0.50 mg/dL 0.2-1.0 Alkaline Phosphatase 47 U/L 34-104 Alt 18 U/L 7-52 Ast 18 U/L 13-39 Egfr Non- 63.9 >60 Egfr 82.2 >60 13 Urinalysis Profile 03/27/2017 Urine Color Straw Urine Appearance Clear Urine Specific [place] 1.006 Low 1.010-1.030 Urine pH 6.0 5-9 Urine Urobilinogen Negative Negative Urine Ketones Negative Negative Urine Protein Negative Negative Urine Leukocytes 1+ Negative Urine Blood 1+ Negative Urine Nitrite Negative Negative Urine Bilirubin Negative Negative Urine Glucose Negative Negative Urine White Blood Cell Trace(0-5/hpf) Absent Urine Red Blood Cell Trace(0-2/hpf) Absent Urine Bacteria Absent Absent CBC Auto Diff 03/27/2017 White Blood Count 8.0 10^3/uL 3.5-10.8 Red Blood Count 5.22 10^6/uL 4.0-5.4 Hemoglobin 10.4 g/dL Low 12.0-16.0 Hematocrit 33 % Low 35-47 Mean Corpuscular Volume 63 fL Low 80-97 14 Mean Corpuscular Hemoglobin 20 pg Low 27-31 Mean Corpuscular HGB Conc 32 g/dL 31-36 Red Cell Distribution Width 18 % High 10.5-15 Platelet Count 262 10^3/uL 150-450 Mean Platelet Volume 8 um3 7.4-10.4 Abs Neutrophils 6.4 10^3/uL 1.5-7.7 Abs Lymphocytes 1.0 10^3/uL 1.0-4.8 Abs Monocytes 0.4 10^3/uL 0-0.8 Abs Eosinophils 0.1 10^3/uL 0-0.6 Abs Basophils 0 10^3/uL 0-0.2 Abs Nucleated RBC 0 10^3/uL Granulocyte % 80.0 % 38-83 Lymphocyte % 13.0 % Low 25-47 Monocyte % 5.0 % 1-9 Eosinophil % 1.4 % 0-6 Basophil % 0.6 % 0-2 Nucleated Red Blood Cells % 0 Urine Drug SCR ED 03/27/2017 Amphetamine Ur Screen None Detected None Detect & [facility] Barbiturates Urine Screen None Detected None Detect Benzodiazepine Urine Screen None Detected None Detect Urine Cannabinoids Screen None Detected None Detect Urine Cocaine Screen None Detected None Detect Urine Opiates Screen None Detected None Detect Urine Phencyclidine Screen None Detected None Detect 15 CBC Auto Diff 06/28/2016 White Blood Count 6.4 10^3/uL 3.5-10.8 Red Blood Count 5.00 10^6/uL 4.0-5.4 Hemoglobin 10.1 g/dL Low 12.0-16.0 Hematocrit 31 % Low 35-47 Mean Corpuscular Volume 63 fL Low 80-97 16 Mean Corpuscular Hemoglobin 20 pg Low 27-31 Mean Corpuscular HGB Conc 32 g/dL 31-36 Red Cell Distribution Width 17 % High 10.5-15 Platelet Count 259 10^3/uL 150-450 Mean Platelet Volume 10 um3 7.4-10.4 Abs Neutrophils 4.3 10^3/uL 1.5-7.7 Abs Lymphocytes 1.6 10^3/uL 1.0-4.8 Abs Monocytes 0.4 10^3/uL 0-0.8 Abs Eosinophils 0.1 10^3/uL 0-0.6 Abs Basophils 0 10^3/uL 0-0.2 Abs Nucleated RBC 0 10^3/uL Granulocyte % 67.5 % 38-83 Lymphocyte % 24.4 % Low 25-47 Monocyte % 5.5 % 1-9 Eosinophil % 2.0 % 0-6 Basophil % 0.6 % 0-2 Nucleated Red Blood Cells % 0.1 Comp Metabolic Panel 06/28/2016 Sodium 141 mmol/L 133-145 Potassium 3.6 mmol/L 3.5-5.0 Chloride 107 mmol/L 101-111 Co2 Carbon Dioxide 28 mmol/L 22-32 Anion Gap 6 mmol/L 2-11 Glucose 101 mg/dL High 70-100 Blood Urea Nitrogen 18 mg/dL 6-24 Creatinine 0.89 mg/dL 0.51-0.95 BUN/Creatinine Ratio 20.2 High 8-20 Calcium 9.5 mg/dL 8.6-10.3 Total Protein 6.7 g/dL 6.4-8.9 Albumin 4.2 g/dL 3.2-5.2 Globulin 2.5 g/dL 2-4 Albumin/Globulin Ratio 1.7 1-3 Total Bilirubin 0.60 mg/dL 0.2-1.0 Alkaline Phosphatase 44 U/L 34-104 Alt 22 U/L 7-52 Ast 39 U/L 13-39 Egfr Non- 65.6 >60 Egfr 84.4 >60 17 Laboratory test 06/28/2016 Lipase 13 U/L 11.0-82.0 finding Ua And Culture 11/26/2015 Urine Culture And SEE RESULT 18 Sensitivity Sensitivities BELOW Urinalysis Profile 11/26/2015 Urine Color Straw Urine Appearance Clear Urine Specific [place] 1.008 Low 1.010-1.030 Urine pH 5.0 5-9 Urine Urobilinogen Negative Negative Urine Ketones Negative Negative Urine Protein Negative Negative Urine Leukocytes Negative Negative Urine Blood 1+ Negative Urine Nitrite Negative Negative Urine Bilirubin Negative Negative Urine Glucose Negative Negative Urine White Blood Cell Trace(0-5/hpf) Absent Urine Red Blood Cell Trace(0-2/hpf) Absent Urine Bacteria Absent Absent Ua Routine 11/26/2015 Ua Specific [place] 1.005 Ua PH 5 Ua Color yellow Ua Appera clear Ua WBC neg Ua Protein neg Ua Glucose neg Ua Ketones eng Ua Bilirubin eng Ua Urobilinogen neg Ua Nitrite neg Ua Occult Blood pos Lipid Profile (Trig/Chol/HDL) 11/13/2015 Triglycerides 59 mg/dL 19 Cholesterol 135 mg/dL 20 HDL Cholesterol 47.4 mg/dL 21 LDL Cholesterol 76 mg/dL 22 Comp Metabolic Panel 11/13/2015 Sodium 139 mmol/L 133-145 Potassium 4.3 mmol/L 3.5-5.0 Chloride 105 mmol/L 101-111 Co2 Carbon Dioxide 28 mmol/L 22-32 Anion Gap 6 mmol/L 2-11 Glucose 86 mg/dL 70-100 Blood Urea Nitrogen 21 mg/dL 6-24 Creatinine 0.86 mg/dL 0.51-0.95 BUN/Creatinine Ratio 24.4 High 8-20 Calcium 9.4 mg/dL 8.6-10.3 Total Protein 6.7 g/dL 6.4-8.9 Albumin 4.3 g/dL 3.2-5.2 Globulin 2.4 g/dL 2-4 Albumin/Globulin Ratio 1.8 1-3 Total Bilirubin 0.40 mg/dL 0.2-1.0 Alkaline Phosphatase 48 U/L 34-104 Alt 26 U/L 7-52 Ast 35 U/L 13-39 Egfr Non- 68.5 >60 Egfr 88.1 >60 23 Laboratory test finding 11/13/2015 TSH (Thyroid Stim Horm) 1.45 ?IU/mL 0.34-5.60 Urinalysis Profile 11/13/2015 Urine Color [place] Urine Appearance Turbid Urine Specific [place] 1.020 1.010-1.030 Urine pH 5.0 5-9 Urine Urobilinogen Negative Negative Urine Ketones Negative Negative Urine Protein Negative Negative Urine Leukocytes Negative Negative Urine Blood 1+ Negative Urine Nitrite Negative Negative Urine Bilirubin Negative Negative Urine Glucose Negative Negative Urine White Blood Cell Absent Absent Urine Red Blood Cell Absent Absent Urine Bacteria Absent Absent Urine Amorphous Crystals Present Absent CBC No Diff 11/13/2015 White Blood Count 4.3 10^3/uL 3.5-10.8 Red Blood Count 4.98 10^6/uL 4.0-5.4 Hemoglobin 9.8 g/dL Low 12.0-16.0 Hematocrit 31 % Low 35-47 Mean Corpuscular Volume 63 fL Low 80-97 Mean Corpuscular Hemoglobin 20 pg Low 27-31 Mean Corpuscular HGB Conc 31 g/dL 31-36 Red Cell Distribution Width 18 % High 10.5-15 Platelet Count 270 10^3/uL 150-450 Mean Platelet Volume 9 um3 7.4-10.4 Lipid Profile (Trig/Chol/HDL) 11/25/2014 Triglycerides 129 mg/dL 24 Cholesterol 164 mg/dL 25 HDL Cholesterol 43.6 mg/dL 26 LDL Cholesterol 95 mg/dL 27 Comp Metabolic Panel 11/25/2014 Sodium 137 mmol/L 133-145 Potassium 4.2 mmol/L 3.5-5.0 Chloride 103 mmol/L 101-111 Co2 Carbon Dioxide 31 mmol/L 22-32 Anion Gap 3 mmol/L 2-11 Glucose 79 mg/dL 70-100 Blood Urea Nitrogen 24 mg/dL 6-24 Creatinine 0.86 mg/dL 0.51-0.95 BUN/Creatinine Ratio 27.9 High 8-20 Calcium 9.6 mg/dL 8.6-10.3 Total Protein 7.2 g/dL 6.4-8.9 Albumin 4.5 g/dL 3.2-5.2 Globulin 2.7 g/dL 2-4 Albumin/Globulin Ratio 1.7 1-3 Total Bilirubin 0.40 mg/dL 0.2-1.0 Alkaline Phosphatase 51 U/L 34-104 Alt 17 U/L 7-52 Ast 19 U/L 13-39 Egfr Non- 68.8 >60 Egfr 88.4 >60 28 CBC Auto Diff 11/25/2014 White Blood Count 5.7 10^3/uL 4.8-10.8 Red Blood Count 4.95 10^6/uL 4.0-5.4 Hemoglobin 10.1 g/dL Low 12.0-16.0 Hematocrit 32 % Low 35-47 Mean Corpuscular Volume 64 fL Low 80-97 29 Mean Corpuscular Hemoglobin 20 pg Low 27-31 Mean Corpuscular HGB Conc 32 g/dL 31-36 Red Cell Distribution Width 16 % High 10.5-15 Platelet Count 295 10^3/uL 150-450 Mean Platelet Volume 9 um3 7.4-10.4 Abs Neutrophils 3.1 10^3/uL 1.5-7.7 Abs Lymphocytes 1.9 10^3/uL 1.0-4.8 Abs Monocytes 0.5 10^3/uL 0-0.8 Abs Eosinophils 0.2 10^3/uL 0-0.6 Abs Basophils 0.1 10^3/uL 0-0.2 Abs Nucleated RBC 0.02 10^3/uL Granulocyte % 53.6 % 38-83 Lymphocyte % 33.7 % 25-47 Monocyte % 9.0 % 1-9 Eosinophil % 2.6 % 0-6 Basophil % 1.1 % 0-2 Nucleated Red Blood Cells % 0.4 Laboratory test finding 11/25/2014 TSH (Thyroid Stimulating 4.04 IU/mL 0.34-5.60 Horm) Urinalysis Profile 11/25/2014 Urine Color Straw Urine Appearance Clear Urine Specific [place] 1.008 Low 1.010-1.030 Urine pH 5.0 5-9 Urine Urobilinogen Negative Negative Urine Ketones Negative Negative Urine Protein Negative Negative Urine Leukocytes Negative Negative Urine Blood Negative Negative Urine Nitrite Negative Negative Urine Bilirubin Negative Negative Urine Glucose Negative Negative Ua Routine 08/27/2014 Ua Specific [place] 1.020 Ua PH 5 Ua Color yellow Ua Appera clear Ua WBC negative Ua Protein negative Ua Glucose negative Ua Ketones small Ua Bilirubin small Ua Urobilinogen normal Ua Nitrite negative Ua Occult Blood small Laboratory test finding 12/10/2013 Pathologist Review (SEE NOTE) 30 Cell Morphology 12/10/2013 Platelet Morphology Large Microcytosis 2+ Hypochromasia 1+ Target Cells 1+ Elliptocyte 1+ Laboratory test finding 12/10/2013 Hepatitis C Antibody Nonreactive Nonreactive CBC Auto Diff 12/10/2013 White Blood Count 6.2 10^3/uL 4.8-10.8 Red Blood Count 5.09 10^6/uL 4.0-5.4 Hemoglobin 10.2 g/dL Low 12.0-16.0 Hematocrit 32 % Low 35-47 Mean Corpuscular Volume 63 fL Low 80-97 Mean Corpuscular Hemoglobin 20 pg Low 27-31 Mean Corpuscular HGB Conc 32 g/dL 31-36 Red Cell Distribution Width 17 % High 10.5-15 Platelet Count 349 10^3/uL 150-450 Mean Platelet Volume 9 um3 7.4-10.4 Abs Neutrophils 3.4 10^3/uL 1.5-7.7 Abs Lymphocytes 2.2 10^3/uL 1.0-4.8 Abs Monocytes 0.5 10^3/uL 0-0.8 Abs Eosinophils 0.1 10^3/uL 0-0.6 Abs Basophils 0 10^3/uL 0-0.2 Abs Nucleated RBC 0.01 10^3/uL Granulocyte % 54.6 % 38-83 Lymphocyte % 34.8 % 25-47 Monocyte % 8.1 % 1-9 Eosinophil % 1.9 % 0-6 Basophil % 0.6 % 0-2 Nucleated Red Blood Cells % 0.1 HPV High Risk 11/22/2013 Human Papillomavirus Source ECTO/ENDO HPV High Risk Type 16, PCR Negative Negative HPV High Risk Type 18, PCR Negative Negative HPV Other Risk types Negative Negative 31 Laboratory test finding 11/22/2013 Cytology RUN DATE: <SEE NOTE> Laboratory test finding 11/13/2013 Glucose 79 mg/dL 70-100 33 Lipid Profile 11/13/2013 Triglycerides 53 mg/dL 40-200 (Trig/Chol/HDL) Cholesterol 168 mg/dL Less than 200 HDL Cholesterol 62 mg/dL High 40-60 34 Cholesterol/HDL Ratio 2.7 Average 1-4.44 LDL Cholesterol 95.4 Less Than 100 35 1 Verbal to [id number] by [id number] at 0035 on 01/21/18. Results read back accurately. 2 SEE RESULT BELOW Name: ARIES RIZVI : [address]: Kenny Olvera MD Acct: [id number] Unit: [id number] AGE: 57 Location: ED Re01/20/18 SEX: F Status: DEP ER SPEC: [id number] CONOR: 01/20/[address]: Yogi Goodson MD REQ: [id number] RECD: 01/20/18 STATUS: BRIAN RODRÍGUEZ DR: Emily Olvera MD _ SOURCE: URINE SPDESC: ORDERED: Urine Culture Procedure Result Reported Site Urine Culture Final 01/22/18- 0818 ML No growth of clinically significant organisms * ML - [facility] . END OF REPORT DEPARTMENT OF PATHOLOGY, [address] [place] [address] John Olivera M.D. Director [facility] # [id number] 3 Consistent with Previous Results Reported on 03/27/17 4 [facility] Severe Sepsis and Septic Shock Management Bundle Measure requires all lactic acids initially measuring >2.0 mmol/L be repeated. 5 Because ethnic data is not always readily available, this report includes an eGFR for both -Americans and non- Americans. The National Kidney Disease Education Program (NKDEP) does not endorse the use of the MDRD equation for patients that are not between the ages of 18 and 70, are , have extremes of body size, muscle mass, or nutritional status, or are non- or non-. According to the National Kidney Foundation, irrespective of diagnosis, the stage of the disease is based on the level of kidney function: Stage Description GFR(mL/min/1.73 m(2)) 1 Kidney damage with normal or decreased GFR 90 2 Kidney damage with mild decrease in GFR 60-89 3 Moderate decrease in GFR 30-59 4 Severe decrease in GFR 15-29 5 Kidney failure <15 (or dialysis) 6 Acute inflammation: >10.00 7 Verbal to [id number] by [id number] at 2214 on 01/20/18. Results read back accurately. 8 SEE RESULT BELOW Name: ARIES RIZVI : [address]: Emily Cantrell MD Acct: [id number] Unit: [id number] AGE: 57 Location: [facility] Re09/25/17 SEX: F Status: REG REF SPEC: [id number] CONOR: 09/25/17-[address]: Emily Cantrell MD REQ: [id number] RECD: 09/25/17 STATUS: COMP _ SOURCE: URINE SPDESC: ORDERED: Urine Culture Procedure Result Reported Site Urine Culture Final 09/27/17- 1115 ML No Growth (<1,000 CFU/mL) * ML - MAIN LAB ([facility]) . END OF REPORT * ML=Testing performed at Main Lab DEPARTMENT OF PATHOLOGY, [address] [place] [address] John Olivera M.D. Director [facility] # [id number] 9 *Ascorbic acid is present which may interfere with detection of blood. 10 Because ethnic data is not always readily available, this report includes an eGFR for both -Americans and non- Americans. The National Kidney Disease Education Program (NKDEP) does not endorse the use of the MDRD equation for patients that are not between the ages of 18 and 70, are , have extremes of body size, muscle mass, or nutritional status, or are non- or non-. According to the National Kidney Foundation, irrespective of diagnosis, the stage of the disease is based on the level of kidney function: Stage Description GFR(mL/min/1.73 m(2)) 1 Kidney damage with normal or decreased GFR 90 2 Kidney damage with mild decrease in GFR 60-89 3 Moderate decrease in GFR 30-59 4 Severe decrease in GFR 15-29 5 Kidney failure <15 (or dialysis) 11 SEE RESULT BELOW Name: ARIES RIZVI : [address]: Pedro Duran MD Acct: [id number] Unit: [id number] AGE: 56 Location: ED Re03/27/17 SEX: F Status: DEP ER SPEC: [id number] CONOR: 03/27/[address]: Pedro Duran MD REQ: [id number] RECD: 03/27/17 STATUS: BRIAN RODRÍGUEZ DR: Emily Cantrell MD _ SOURCE: URINE SPDESC: ORDERED: Urine Culture Procedure Result Reported Site Urine Culture Final 03/29/17- 0844 ML No Growth (<1,000 CFU/mL) * ML - MAIN LAB ([facility]) . END OF REPORT * ML=Testing performed at Main Lab DEPARTMENT OF PATHOLOGY, [address] [place] [address] John Olivera M.D. Director [facility] # [id number] 12 Therapeutic concentration: <50 ug/mL Toxic concentration: >120 ug/mL 13 Because ethnic data is not always readily available, this report includes an eGFR for both -Americans and non- Americans. The National Kidney Disease Education Program (NKDEP) does not endorse the use of the MDRD equation for patients that are not between the ages of 18 and 70, are , have extremes of body size, muscle mass, or nutritional status, or are non- or non-. According to the National Kidney Foundation, irrespective of diagnosis, the stage of the disease is based on the level of kidney function: Stage Description GFR(mL/min/1.73 m(2)) 1 Kidney damage with normal or decreased GFR 90 2 Kidney damage with mild decrease in GFR 60-89 3 Moderate decrease in GFR 30-59 4 Severe decrease in GFR 15-29 5 Kidney failure <15 (or dialysis) 14 Consistent with previous results on 07/06/16. 15 The urine specimen was tested at the listed cutoffs: Drug class test level (ng/mL) Amphetamines 500 Barbiturates 200 Benzodiazepine metabolites 200 Cocaine metabolites 150 Cannabinoids 50 Opiates 300 Pcp 25 Specimen was received without chain of custody. Results should be used for medical purposes only. 16 Consistent with previous results on 11/13/15. 17 Because ethnic data is not always readily available, this report includes an eGFR for both -Americans and non- Americans. The National Kidney Disease Education Program (NKDEP) does not endorse the use of the MDRD equation for patients that are not between the ages of 18 and 70, are , have extremes of body size, muscle mass, or nutritional status, or are non- or non-. According to the National Kidney Foundation, irrespective of diagnosis, the stage of the disease is based on the level of kidney function: Stage Description GFR(mL/min/1.73 m(2)) 1 Kidney damage with normal or decreased GFR 90 2 Kidney damage with mild decrease in GFR 60-89 3 Moderate decrease in GFR 30-59 4 Severe decrease in GFR 15-29 5 Kidney failure <15 (or dialysis) 18 SEE RESULT BELOW Name: ARIES RIZVI : [address]: Emily Cantrell MD Acct: [id number] Unit: [id number] AGE: 55 Location: [facility] Re11/26/15 SEX: F Status: REG REF SPEC: [id number] CONOR: 11/26/15-[address]: Emily Cantrell MD REQ: [id number] RECD: 11/26/15 STATUS: COMP _ SOURCE: URINE SPDESC: ORDERED: Urine Culture COMMENTS: U/A with micro Urine Source: Clean Catch Procedure Result Reported Site Urine Culture Final 11/27/15- 1322 ML No Growth (<1,000 CFU/mL) * ML - [facility] ([facility]) . END OF REPORT * ML=Testing performed at [facility] DEPARTMENT OF PATHOLOGY, [address] [place] [address] John Olivera M.D. Director [facility] # [id number] Desirable <150 Borderline high 150-199 High 200-499 Very High >500 20 Desirable <200 Borderline high 200-239 High >239 21 Low <40 Desirable: 40-60 High: >60 22 Desirable: <100 mg/dL Near Optimal: 100-129 mg/dL Borderline High: 130-159 mg/dL High: 160-189 mg/dL Very High: >189 mg/dL 23 Because ethnic data is not always readily available, this report includes an eGFR for both -Americans and non- Americans. The National Kidney Disease Education Program (NKDEP) does not endorse the use of the MDRD equation for patients that are not between the ages of 18 and 70, are , have extremes of body size, muscle mass, or nutritional status, or are non- or non-. According to the National Kidney Foundation, irrespective of diagnosis, the stage of the disease is based on the level of kidney function: Stage Description GFR(mL/min/1.73 m(2)) 1 Kidney damage with normal or decreased GFR 90 2 Kidney damage with mild decrease in GFR 60-89 3 Moderate decrease in GFR 30-59 4 Severe decrease in GFR 15-29 5 Kidney failure <15 (or dialysis) 24 Desirable <150 Borderline high 150-199 High 200-499 Very High >500 25 Desirable <200 Borderline high 200-239 High >239 26 Low <40 Desirable: 40-60 High: >60 27 Desirable <100 Near Optimal 100-129 Borderline high 130-159 High 160-189 Very High >189 28 Because ethnic data is not always readily available, this report includes an eGFR for both -Americans and non- Americans. The National Kidney Disease Education Program (NKDEP) does not endorse the use of the MDRD equation for patients that are not between the ages of 18 and 70, are , have extremes of body size, muscle mass, or nutritional status, or are non- or non-. According to the National Kidney Foundation, irrespective of diagnosis, the stage of the disease is based on the level of kidney function: Stage Description GFR(mL/min/1.73 m(2)) 1 Kidney damage with normal or decreased GFR 90 2 Kidney damage with mild decrease in GFR 60-89 3 Moderate decrease in GFR 30-59 4 Severe decrease in GFR 15-29 5 Kidney failure <15 (or dialysis) 29 Consistent with previous results on 08/01/14. 30 CBC and smear reviewed. Microcytic anemia noted. REVIEWED BY JOHN OLIVERA MD 31 The following Other High Risk HPV types were not detected: 31, 33, 35, 39, 45, 51, 52, 56, 58, 59, 66, and 68 Test Performed by: [address] [address] Roll Cutter: Eber Lim III, M.D. 32 RUN DATE: 11/25/13 [facility] LIVE PAGE 1 RUN TIME: [id number] [place] [id number] Specimen Inquiry Name: ARIES RIZVI : [address]: Emily Cantrell MD Acct: [id number] Unit: [id number] AGE: 53 Location: [facility] Re11/22/13 SEX: F Status: REG REF SPEC: [id number] CONOR: 11/22/13-[address] [facility] [address]: Emily Cantrell MD REQ: [id number] RECD: 11/22/13 STATUS: SOUT _ ORDERED: IMAGE ANALYSIS, PAP SM PATH REV, HPV/Thin Prep FINAL DIAGNOSIS Negative for Intraepithelial lesion or Malignancy Reactive cellular changes associated with Inflammation (includes typical repair) COMMENTS: Specimen sent to [facility] in [place], [place] on 11/25/13 by [id number] at 1143. Results will be reported separately. A. Ectocervical/Endocervical Specimen Adequacy: Satisfactory of evaluation Transformation zone component cannot be definitely identified due to presence of atrophy or other hormonal changes Patient Information: HPV: High risk HPV DNA testing regardless of pap results. Actual Specimen Date: 11/22/13 LMP If Unknown: early 50's. ?: N Post Menopausal?: N Hysterectomy?: N Previous Abnormal Pap Smears?:N Signed (signature on file) John Olivera MD 1508 This Pap test was evaluated with the assistance of the CrowdzuPrep Test Imaging System. Due to cytologic findings at the rn social work microscope, comprehensive manual rescreening by a Precise Winder may be required. The Pap Smear is a screening test designed to aid in the detection of premalignant and malignant conditions of the uterine cervix. It is not a diagnostic procedure and should not be used as the sole means of detecting cervical cancer. Both false- positive and false- negative reports do occur. Depending on your risk status, a Pap smear shoudl be obtained and evaluated every 1-3 years. END OF REPORT * ML=Testing performed at Main Lab DEPARTMENT OF PATHOLOGY, [address] [place] [address] John Olivera M.D. Director [facility] Permit #[id number] FASTING 34 HDL Interpretation: Undesirable: High Risk: Less than 40 mg/dL Desirable: Low Risk: Greater than 60 mg/dL 35 LDL Interpretation: Low Risk Optimal Level: LDL Less than 100 mg/dL Near or Above Optimal: LDL 100-129 mg/dL Borderline High Risk: LDL 130-159 mg/dL High Risk: LDL 160-189 mg/dL Very High Risk: LDL Greater than 189 mg/dL Procedures Date CPT Code Description Status 10/26/2017 Mammogram Completed 07/06/2016 06833 EKG, Interpretation Only Completed 09/24/2015 Colonoscopy Completed Encounters Type Date Location Provider CPT E/M Dx Office Visit 12/15/2017 [facility] Emily Cantrell, 31817 R31.9 10:20a Andrew Porter M.D. L60.2 N95.9 B35.1 Office Visit 09/25/2017 11:40a [facility] Emily Cantrell 28656 F31.62 Andrew Porter M.D. Z79.899 Z12.31 M25.511 L60.3 Office Visit 08/19/2016 4:40p [facility] Emily Cantrell 31217 R56.9 Andrew Porter M.D. H53.8 R20.2 R32 R41.0 Office Visit 07/06/2016 9:40a [facility] Radha Ortiz, 15121 T50.901A Assoc, Hospitalists DRAGGER OUT Office Visit 07/05/2016 9:38a [facility] Jairo Zepeda M.D. 27234 T50.901A Assoc,pc Hospitalists Office Visit 06/28/2016 10:20a [facility] Emily Cantrell, 34354 R10.13 - [place] Z72.0 Office Visit 11/26/2015 10:40a [facility] Emily Cantrell, 29807 Z00.00 - [place] R31.2 Z12.31 Office Visit 08/27/2015 1:00p [facility] Emily Cantrell, 61772 M25.511 Medicine - [place] Z12.11 Z12.31 M77.11 Z23 Office Visit 04/08/2015 2:40p [facility] Emily Cantrell, 19350 719.46 - [place] [facility] 924.4 781.2 Office Visit 03/18/2015 2:30p [facility] Emily Cantrell, 79687 919.0 - [place] 916.0 Office Visit 11/25/2014 10:20a [facility] Emily Cantrell, 77414 V70.0 - [place] V76.12 599.70 311 V76.51 719.45 Office Visit 08/27/2014 1:00p [facility] [place] [address] 724.5 [place] 599.70 Office Visit 08/04/2014 11:20a [facility] Emily Cantrell, [address] 311 - [place] [facility] Office Visit 11/22/2013 1:40p [facility] Internal [facility] Emily Cantrell, 52171 V70.0 - [place] V72.31 389.9 843.9 V76.10 V76.2 V76.51 V73.99 282.40 Plan of Care 01/23/2018 - [place], NPR79.89 Other specified abnormal findings of blood chemistryComments:I have ordered some further bloodwork, as we disscussed. If you have any blood in your stool, in your urine, from your gums, or anywhere else you should go to the ER.Referral:Yoel Awan MD, Hematology/Phys/ [id number] Unspecified abdominal pain
[2018-01-25 12:38] LABS: EGFR Non-African American 71.9 (>60)
[2018-01-25] MEDS ORDERED: Phytonadione Oral Solution* 5 MG/25 ML UDC PO ONE (12:47)
--- NOTE | 2018-01-25 13:21 | RAD ---
HISTORY: Chest pain COMPARISONS: None VIEWS: 1: frontal portable view of the chest at 12:44 PM FINDINGS: LINES AND TUBES: None. CARDIOMEDIASTINAL SILHOUETTE: The cardiomediastinal silhouette is normal for portable technique. PLEURA: The costophrenic angles are sharp. No pleural abnormalities are noted. LUNG PARENCHYMA: The lungs are clear. ABDOMEN: The upper abdomen is clear. There is no subphrenic gas. BONES AND SOFT TISSUES: No bone or soft tissue abnormalities are noted. IMPRESSION: NO ACTIVE CARDIOPULMONARY DISEASE.
[2018-01-25] MEDS ORDERED: Ondansetron INJ* 2 MG/ML VIAL IV PRN (13:57)
[2018-01-25] MEDS ORDERED: Acetaminophen TAB* 325 MG PO PRN (13:57)
[2018-01-25] MEDS ORDERED: Pantoprazole IV* 40 MG IV ONE (13:57)
--- NOTE | 2018-01-25 14:27 | CONSULT ---
Consultation - Reason for Consultation Reason for Consultation: bruising and elevated INR Ordering Provider: Joe Rangel Chief Complaint: elevated INR and bruising History of Present Illness: 57 yo F w PMH of depression/bipolar disorder presenting for evaluation of abdominal pain, massive ecchymoses and markedly elevated INR> Aries reports that ~4 weeks ago she had dental extractions complicated by continued bleeding and need for sutures. She did NOT require a transfusion. She took advil BID x 2 weeks for the pain of this which stopped 2 weeks ago. About one week ago she developed abdominal pain and shortness of breath. She went to the ER on the and had a CT A/P, which was unremarkable. INR in the ER at that time revealed mild anemia (she does have thalassemia) and markedly elevated INR (11, confirmed on repeat). she got IM vitamin K and was told to stop taking ginko biloba, which she did. She went to urgent care on the with worsening abdominal pain. She reported there that she was having blood tinged vomit. She was strongly advised to go to the ER, and verbally agreed to do so, but went home instead. Yesterday repeat blood work with her primary showed a markedly elevated INR (too high to register) and elevated pTT. She was recommended to go to the ER but refused initially. She was referred to our office but I directed her emergently to the ER. There she was noted to have a 2 pt hemoglobin drop. She does report dark stools but not tarry. She reports scattered ecchymoses since her visit to the ER on the . She adamantly denies any synthetic marijuana use, anticoagulant use, or fear of poisoning. She denies any suicidal ideation or attempts to harm herself. She denies any supplement use now. Allergies/Medications Medication: Home Medications Medication Instructions Recorded Confirmed Type DULoxetine DR CAP* [Cymbalta CAP*] 60 mg PO DAILY 03/27/17 01/25/18 History Gabapentin CAP(*) [Neurontin 100 100 mg PO BID 03/27/17 01/25/18 History mg CAP(*)] [place] Carbonate TAB* 300 mg PO DAILY 03/27/17 01/25/18 History LORazepam [Ativan 1 MG TAB] 1 mg PO DAILY PRN 01/22/18 01/25/18 History reports ginko use stopped 2 weeks ago Allergies/Adverse Reactions: Allergies Allergy/AdvReac Type Severity Reaction Status Date / Time aspirin Allergy GI Upset Verified 01/22/18 14:13 metronidazole [From Flagyl] Allergy Abdominal Verified 01/22/18 14:13 Pain History - Past Medical History Other History: beta thalassemia trait. major depressive disorder, hypmania/ bipolar. appendectomy. carpal tunnel release. dental extractions - Family History Other Family History: mother cancer Review of Systems - Review of Systems General Comments: abdominal pain, dark stools, bruising, depression. otherwise fully negative ROS Physical Exam - Physical Exam Physical Examination: Vital Signs Temp Pulse Resp BP Pulse Ox 98.9 F 69 18 146/87 100 01/25/18 11:16 01/25/18 14:00 01/25/18 14:00 01/25/18 13:02 01/25/18 14:00 appropriately weighted female sitting up in nad perr eomi op moist CTA bl s1 s2 nl soft mild ttp throughout no clear hsm no le edema marked scattered ecchymoses no petechiae A+O x 3, nonfocal neurological exam Results - Lab Results Lab Results: Laboratory Results - last 24 hr 01/25/18 01/25/18 01/25/18 12:00 12:00 12:00 WBC RBC Hgb Hct MCV MCH MCHC RDW Plt Count MPV Neut % (Auto) Lymph % (Auto) [place] % (Auto) Eos % (Auto) Baso % (Auto) Absolute Neuts (auto) Absolute Lymphs (auto) Absolute Monos (auto) Absolute Eos (auto) Absolute Basos (auto) Absolute Nucleated RBC Nucleated RBC % INR (Anticoag Therapy) TNP APTT 47.5 H Sodium 138 L Potassium 4.5 Chloride 108 Carbon Dioxide 26 Anion Gap 4 BUN 29 H Creatinine 0.82 Est GFR ( Amer) 92.4 Est GFR (Non-Af Amer) 71.9 BUN/Creatinine Ratio 35.4 H Glucose 87 Lactic Acid Calcium 9.1 Magnesium 2.0 Total Bilirubin 0.20 AST 19 ALT 14 Alkaline Phosphatase 72 Total Creatine Kinase 153 CK-MB (CK-2) 1.7 Troponin I 0.00 C-Reactive Protein 1.84 B-Natriuretic Peptide 33 Total Protein 6.7 Albumin 4.1 Globulin 2.6 Albumin/Globulin Ratio 1.6 Lipase 16 TSH 5.00 Salicylates < 2.50 Acetaminophen < 15 [place] 0.10 L Serum Alcohol < 10 Blood Type Antibody Screen 01/25/18 01/25/18 01/25/18 12:00 12:00 12:00 WBC 7.9 RBC 4.74 Hgb 9.5 L Hct 30 L MCV 63 L MCH 20 L MCHC 32 RDW 17 H Plt Count 237 MPV 8.4 Neut % (Auto) 73.3 Lymph % (Auto) 14.0 L [place] % (Auto) 5.9 Eos % (Auto) 6.1 H Baso % (Auto) 0.7 Absolute Neuts (auto) 5.8 Absolute Lymphs (auto) 1.1 Absolute Monos (auto) 0.5 Absolute Eos (auto) 0.5 Absolute Basos (auto) 0.1 Absolute Nucleated RBC 0 Nucleated RBC % 0 INR (Anticoag Therapy) APTT Sodium Potassium Chloride Carbon Dioxide Anion Gap BUN Creatinine Est GFR ( Amer) Est GFR (Non-Af Amer) BUN/Creatinine Ratio Glucose Lactic Acid 0.9 Calcium Magnesium Total Bilirubin AST ALT Alkaline Phosphatase Total Creatine Kinase CK-MB (CK-2) Troponin I C-Reactive Protein B-Natriuretic Peptide Total Protein Albumin Globulin Albumin/Globulin Ratio Lipase TSH Salicylates Acetaminophen [place] Serum Alcohol Blood Type AB Positive Antibody Screen Negative 01/25/18 12:00 WBC RBC Hgb Hct MCV MCH MCHC RDW Plt Count MPV Neut % (Auto) Lymph % (Auto) [place] % (Auto) Eos % (Auto) Baso % (Auto) Absolute Neuts (auto) Absolute Lymphs (auto) Absolute Monos (auto) Absolute Eos (auto) Absolute Basos (auto) Absolute Nucleated RBC Nucleated RBC % INR (Anticoag Therapy) TNP APTT Sodium Potassium Chloride Carbon Dioxide Anion Gap BUN Creatinine Est GFR ( Amer) Est GFR (Non-Af Amer) BUN/Creatinine Ratio Glucose Lactic Acid Calcium Magnesium Total Bilirubin AST ALT Alkaline Phosphatase Total Creatine Kinase CK-MB (CK-2) Troponin I C-Reactive Protein B-Natriuretic Peptide Total Protein Albumin Globulin Albumin/Globulin Ratio Lipase TSH Salicylates Acetaminophen [place] Serum Alcohol Blood Type Antibody Screen Assessment and Plan Impression: 57 yo F w PMH of bipolar disorder/depression presenting with a coagulopathy of unclear etiology. I am suspicious for either intentional or accidental ingestion of either an anticoagulant, particularly given that her mixing study almost completely corrects (suggesting a factor deficiency which can be induced by warfarin or other artificial vitamin k dependant inhibitor). Dr. Turcios from the ER has spoken with poison control and we will check a brodifacoum level. I will also check factor levels and warfarin level to the [place] ( warfarin level will not differentiate between coumadin and rat poison). We are also sending a frozen sample to [facility]. In terms of treatment, I have given her a dose of kcentra which should hopefully reverse her coagulopathy if there is no ongoing ingestion. We should repeat her INR 30 mins post dosage and again in 6 hours. I would be surprised if this was an acquired factor deficiency, though this is theoretically also on the differential. Factor testing will be helpful in determining this. I will also discuss with the primary team placing her on 1 :1 to make sure that there is no clear poisoning or ingestion occurring. We may need to discuss this with psychiatry.
[2018-01-25 15:34] LABS: Urine Appearance Clear; Urine Blood 2+ (Negative); Urine Color Straw; Urine Ketones Negative (Negative); Urine Protein Negative (Negative); Urine Urobilinogen Negative (Negative)
--- NOTE | 2018-01-25 16:04 | ED ---
Priyank Mccallum Jennifer, scribed for Carlos Alberto Aguilera MD on 01/25/18 at 1206 . Complex/Multi-Sys Presentation - HPI Summary HPI Summary: The patient is a 57 year old female who was sent to the ED by her PMD for evaluation of abnormal INR today. The patient additionally complains of some upper abdominal pain, dark green stool, and bruising on bilateral forearms. The patient has gone through a recent stress of her . - History Of Current Complaint Chief Complaint: EDGeneral Time Seen by Provider: 01/25/18 11:49 Hx Obtained From: Patient Onset/Duration: Sudden Onset, Lasting Hours, Still Present Timing: Constant Severity Currently: Mild Severity Initially: Mild Associated Signs And Symptoms: Positive: Other - elevated INR, upper abdominal pain, dark green stool, bruising on both forearms, recent stress - Allergies/Home Medications Allergies/Adverse Reactions: Allergies Allergy/AdvReac Type Severity Reaction Status Date / Time aspirin Allergy GI Upset Verified 01/22/18 14:13 metronidazole [From Flagyl] Allergy Abdominal Verified 01/22/18 14:13 Pain PMH/Surg Hx/FS Hx/Imm Hx Endocrine/Hematology History: Denies: Hx Diabetes, Hx Thyroid Disease Cardiovascular History: Denies: Hx Congestive Heart Failure, Hx Deep Vein Thrombosis, Hx Hypertension , Hx Myocardial Infarction, Hx Pacemaker/ICD Respiratory History: Denies: Hx Asthma, Hx Chronic Obstructive Pulmonary Disease (COPD), Hx Lung Cancer, Hx Pneumonia, Hx Pulmonary Embolism GI History: Denies: Hx Gall Bladder Disease, Hx Gastrointestinal Bleed, Hx Ulcer, Hx Urosepsis History: Denies: Hx Kidney Stones, Hx Renal Disease Musculoskeletal History: Denies: Hx Rheumatoid Arthritis, Hx Osteoporosis Sensory History: Reports: Hx Contacts or Glasses Opthamlomology History: Reports: Hx Contacts or Glasses Neurological History: Denies: Hx Dementia, Hx Migraine, Hx Seizures, Hx Transient Ischemic Attacks (TIA) Psychiatric History: Reports: Hx Anxiety, Hx Depression, Hx Post Traumatic Stress Disorder, Hx Bipolar Disorder Denies: Hx Eating Disorder, Hx of Violent Episodes Against Others - Surgical History Surgery Procedure, Year, and Place: Appendectomy. B/L carpal tunnel - Immunization History Date of Tetanus Vaccine: unk Date of Influenza Vaccine: fall 2016 Infectious Disease History: No Infectious Disease History: Denies: Hx Clostridium Difficile, Traveled Outside the [place] in Last 30 Days - Family History Known Family History: Positive: Other - cancer, mother - Social History Alcohol Use: None Hx Substance Use: No Substance Use Type: Reports: None Hx Tobacco Use: Yes Smoking Status (MU): Former Smoker Type: Cigarettes Have You Smoked in the Last Year: No Review of Systems Positive: Other - Elevated INR Positive: Abdominal Pain, Other - Dark, green stool Positive: Bruising - Bilateral arms All Other Systems Reviewed And Are Negative: Yes Physical Exam Triage Information Reviewed: Yes Vital Signs On Initial Exam: Initial Vitals Temp Pulse Resp BP Pulse Ox 98.9 F 74 18 152/84 100 01/25/18 11:16 01/25/18 11:16 01/25/18 11:16 01/25/18 11:16 01/25/18 11:16 Vital Signs Reviewed: Yes Diagnostics - Vital Signs Vital Signs Temp Pulse Resp BP Pulse Ox 01/25/18 11:32 72 17 100 01/25/18 11:16 98.9 F 74 18 152/84 100 - Laboratory Lab Results: Lab Results 01/25/18 01/25/18 01/25/18 Range/Units 12:00 12:00 12:00 WBC (3.5-10.8) 10^3/ul RBC (4.0-5.4) 10^6/ul Hgb (12.0-16.0) g/dl Hct (35-47) % MCV (80-97) fL MCH (27-31) pg MCHC (31-36) g/dl RDW (10.5-15) % Plt Count (150-450) 10^3/ul MPV (7.4-10.4) um3 Neut % (Auto) (38-83) % Lymph % (Auto) (25-47) % [place] % (Auto) (0-7) % Eos % (Auto) (0-6) % Baso % (Auto) (0-2) % Absolute Neuts (auto) (1.5-7.7) 10^3/ul Absolute Lymphs (auto) (1.0-4.8) 10^3/ul Absolute Monos (auto) (0-0.8) 10^3/ul Absolute Eos (auto) (0-0.6) 10^3/ul Absolute Basos (auto) (0-0.2) 10^3/ul Absolute Nucleated RBC 10^3/ul Nucleated RBC % INR (Anticoag Therapy) TNP APTT 47.5 H (26.0-36.3) seconds PT Patient/Normal 1:1 PT Pat/Norm 1:1 1 Hr PTT Normal Plasma 1 Hr PTT Patient/Normal 1:1 Mixing Interpretation Sodium 138 L (139-145) mmol/L Potassium 4.5 (3.5-5.0) mmol/L Chloride 108 (101-111) mmol/L Carbon Dioxide 26 (22-32) mmol/L Anion Gap 4 (2-11) mmol/L BUN 29 H (6-24) mg/dL Creatinine 0.82 (0.51-0.95) mg/dL Est GFR ( Amer) 92.4 (>60) Est GFR (Non-Af Amer) 71.9 (>60) BUN/Creatinine Ratio 35.4 H (8-20) Glucose 87 (70-100) mg/dL Lactic Acid (0.5-2.0) mmol/L Calcium 9.1 (8.6-10.3) mg/dL Magnesium 2.0 (1.9-2.7) mg/dL Total Bilirubin 0.20 (0.2-1.0) mg/dL AST 19 (13-39) U/L ALT 14 (7-52) U/L Alkaline Phosphatase 72 (34-104) U/L Total Creatine Kinase 153 (10-223) U/L CK-MB (CK-2) 1.7 (0.6-6.3) ng/mL Troponin I 0.00 (<0.04) ng/mL C-Reactive Protein 1.84 (< 5.00) mg/L B-Natriuretic Peptide 33 ( - 100) pg/mL Total Protein 6.7 (6.4-8.9) g/dL Albumin 4.1 (3.2-5.2) g/dL Globulin 2.6 (2-4) g/dL Albumin/Globulin Ratio 1.6 (1-3) Lipase 16 (11.0-82.0) U/L TSH 5.00 (0.34-5.60) mcIU/mL Salicylates < 2.50 (<30) mg/dL Acetaminophen < 15 mcg/mL [place] 0.10 L (0.6-1.2) mmol/L Serum Alcohol < 10 (<10) mg/dL Blood Type Antibody Screen 01/25/18 01/25/18 01/25/18 Range/Units 12:00 12:00 12:00 WBC 7.9 (3.5-10.8) 10^3/ul RBC 4.74 (4.0-5.4) 10^6/ul Hgb 9.5 L (12.0-16.0) g/dl Hct 30 L (35-47) % MCV 63 L (80-97) fL MCH 20 L (27-31) pg MCHC 32 (31-36) g/dl RDW 17 H (10.5-15) % Plt Count 237 (150-450) 10^3/ul MPV 8.4 (7.4-10.4) um3 Neut % (Auto) 73.3 (38-83) % Lymph % (Auto) 14.0 L (25-47) % [place] % (Auto) 5.9 (0-7) % Eos % (Auto) 6.1 H (0-6) % Baso % (Auto) 0.7 (0-2) % Absolute Neuts (auto) 5.8 (1.5-7.7) 10^3/ul Absolute Lymphs (auto) 1.1 (1.0-4.8) 10^3/ul Absolute Monos (auto) 0.5 (0-0.8) 10^3/ul Absolute Eos (auto) 0.5 (0-0.6) 10^3/ul Absolute Basos (auto) 0.1 (0-0.2) 10^3/ul Absolute Nucleated RBC 0 10^3/ul Nucleated RBC % 0 INR (Anticoag Therapy) APTT (26.0-36.3) seconds PT Patient/Normal 1:1 PT Pat/Norm 1:1 1 Hr PTT Normal Plasma 1 Hr PTT Patient/Normal 1:1 Mixing Interpretation Sodium (139-145) mmol/L Potassium (3.5-5.0) mmol/L Chloride (101-111) mmol/L Carbon Dioxide (22-32) mmol/L Anion Gap (2-11) mmol/L BUN (6-24) mg/dL Creatinine (0.51-0.95) mg/dL Est GFR ( Amer) (>60) Est GFR (Non-Af Amer) (>60) BUN/Creatinine Ratio (8-20) Glucose (70-100) mg/dL Lactic Acid 0.9 (0.5-2.0) mmol/L Calcium (8.6-10.3) mg/dL Magnesium (1.9-2.7) mg/dL Total Bilirubin (0.2-1.0) mg/dL AST (13-39) U/L ALT (7-52) U/L Alkaline Phosphatase (34-104) U/L Total Creatine Kinase (10-223) U/L CK-MB (CK-2) (0.6-6.3) ng/mL Troponin I (<0.04) ng/mL C-Reactive Protein (< 5.00) mg/L B-Natriuretic Peptide ( - 100) pg/mL Total Protein (6.4-8.9) g/dL Albumin (3.2-5.2) g/dL Globulin (2-4) g/dL Albumin/Globulin Ratio (1-3) Lipase (11.0-82.0) U/L TSH (0.34-5.60) mcIU/mL Salicylates (<30) mg/dL Acetaminophen mcg/mL [place] (0.6-1.2) mmol/L Serum Alcohol (<10) mg/dL Blood Type AB Positive Antibody Screen Negative 01/25/18 Range/Units 12:00 WBC (3.5-10.8) 10^3/ul RBC (4.0-5.4) 10^6/ul Hgb (12.0-16.0) g/dl Hct (35-47) % MCV (80-97) fL MCH (27-31) pg MCHC (31-36) g/dl RDW (10.5-15) % Plt Count (150-450) 10^3/ul MPV (7.4-10.4) um3 Neut % (Auto) (38-83) % Lymph % (Auto) (25-47) % [place] % (Auto) (0-7) % Eos % (Auto) (0-6) % Baso % (Auto) (0-2) % Absolute Neuts (auto) (1.5-7.7) 10^3/ul Absolute Lymphs (auto) (1.0-4.8) 10^3/ul Absolute Monos (auto) (0-0.8) 10^3/ul Absolute Eos (auto) (0-0.6) 10^3/ul Absolute Basos (auto) (0-0.2) 10^3/ul Absolute Nucleated RBC 10^3/ul Nucleated RBC % INR (Anticoag Therapy) TNP APTT Pending (26.0-36.3) seconds PT Patient/Normal 1:1 Pending PT Pat/Norm 1:1 1 Hr Pending PTT Normal Plasma 1 Hr Pending PTT Patient/Normal 1:1 Pending Mixing Interpretation Pending Sodium (139-145) mmol/L Potassium (3.5-5.0) mmol/L Chloride (101-111) mmol/L Carbon Dioxide (22-32) mmol/L Anion Gap (2-11) mmol/L BUN (6-24) mg/dL Creatinine (0.51-0.95) mg/dL Est GFR ( Amer) (>60) Est GFR (Non-Af Amer) (>60) BUN/Creatinine Ratio (8-20) Glucose (70-100) mg/dL Lactic Acid (0.5-2.0) mmol/L Calcium (8.6-10.3) mg/dL Magnesium (1.9-2.7) mg/dL Total Bilirubin (0.2-1.0) mg/dL AST (13-39) U/L ALT (7-52) U/L Alkaline Phosphatase (34-104) U/L Total Creatine Kinase (10-223) U/L CK-MB (CK-2) (0.6-6.3) ng/mL Troponin I (<0.04) ng/mL C-Reactive Protein (< 5.00) mg/L B-Natriuretic Peptide ( - 100) pg/mL Total Protein (6.4-8.9) g/dL Albumin (3.2-5.2) g/dL Globulin (2-4) g/dL Albumin/Globulin Ratio (1-3) Lipase (11.0-82.0) U/L TSH (0.34-5.60) mcIU/mL Salicylates (<30) mg/dL Acetaminophen mcg/mL [place] (0.6-1.2) mmol/L Serum Alcohol (<10) mg/dL Blood Type Antibody Screen Result Diagrams: 01/25/18 12:00 01/25/18 12:00 Lab Statement: Any lab studies that have been ordered have been reviewed, and results considered in the medical decision making process. - Radiology CXR Xray Interpretation: No Acute Changes - NO ACTIVE CARDIOPULMONARY DISEASE. Dr. Aguilera has reviewed this report. Radiology Interpretation Completed By: Radiologist - EKG 11:58 Cardiac Rate: NL EKG Rhythm: Sinus Rhythm - [address] Segment: Normal Ectopy: None Complex Multi-Symp Course/Dx Course Of Treatment: Medications reviewed. Allergies noted. BP noted and advised to follow up with PCP. ADMIT HOSPITALIST. DR ARCINIEGA SAW PATIENT IN ED. DISCUSSED WITH POISON CONTROL, DR ASHOK BRANDT. - Diagnoses Provider Diagnoses: Elevated BP without diagnosis of hypertension, Elevated INR - Physician Notifications Discussed Care Of Patient With: Demetra Arciniega Time Discussed With Above Provider: 14:00 Instructed by Provider To: Admit As Inpatient - Dr. Demetra Arciniega and Dr. Madi Rangel saw the patient and admitted to [facility]. I also consulted with poison control. - Critical Care Time Critical Care Time: 30-74 min Discharge - Sign-Out/Discharge Documenting (check all that apply): Discharge - Discharge Plan Condition: Guarded Disposition: ADMITTED TO [facility] - Billing Disposition and Condition Condition: GUARDED Disposition: HOSP-[facility] The documentation as recorded by the Priyank bustillos Jennifer accurately reflects the service I personally performed and the decisions made by me, Carlos Alberto Aguilera MD.
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
--- NOTE | 2018-01-25 16:13 | HP ---
CC: Dr. Cantrell; Dr. Huntley; Dr. Schroeder.* HISTORY AND PHYSICAL: DATE OF ADMISSION: 01/25/18 PRIMARY CARE PROVIDER: Dr. Cantrell. ATTENDING PHYSICIAN WHILE IN THE HOSPITAL: Mook Foley MD * (report dictated by Joe Rangel NP). CONSULTING ENTRY LEVEL CIVIL ENGINEER: Dr. Huntley. CONSULTING PILOT SUBMERSIBLE: Dr. Schroeder. CHIEF COMPLAINT: Abnormal labs. HISTORY OF PRESENT ILLNESS: Mrs. Mcnamara is a 57-year-old female patient who carries a history of bipolar, depression, and anxiety. She is coming into the ED today. She says that about a week ago, possibly 2 weeks ago she was being seen by her primary. She had had a UA done. The patient had been having dark urine. It was noted that she had had blood in the urine. The patient had no signs of UTI; however, there was concern for the hematuria and she was recommended to follow up with Urology. She was supposed to have that appointment last week, unfortunately, she missed the appointment. She was at home with her mother. She says that when leaving, coming back from her mother's , she noted that she felt lightheaded, she was having some abdominal discomfort , so she came into the ER on the 01/20/18 just last week, labs were obtained, it was noted that her INR was 11. The patient was referred back to her primary. The patient says that she still continued to have the dark urine. The INR was being followed closely. It was noted to be elevated for really unclear reasons. She actually was being set up to follow with Dr. Schroeder; however, it was noted in repeat labs two days ago and today in the outpatient setting that the INR was undetectable and at that point the patient was sent into the hospital for further evaluation. It was undetectable in the lab setting, it was undetectable at the office setting. The patient said that she has not noticed any significant bleeding. She does not that her stools have been dark, but she denies having any tarry stools. She denied having any vomiting of blood and no monika blood in her stool. She says she has not fallen or had any trauma. She does note that since being here, since having a vitamin K injection, the patient did have bruising in the left arm. She denied having any syncope. She does admit to having some epigastric discomfort. She denies having any fevers or chills. No chest pain or shortness of breath. She has not again noted any monika blood. She came into the emergency department today, was evaluated again. It was reported that the INR was greater than 25. At that point, we were asked to evaluate for admission. PAST MEDICAL HISTORY: Significant for: 1. Bipolar disorder. 2. Depression. 3. Anxiety. PAST SURGICAL HISTORY: 1. She has had an appendectomy. 2. Carpal tunnel. MEDICATIONS: Home meds according to the list we obtained include: 1. [place]ock 300 mg daily. 2. Ativan 1 mg p.o. daily as needed. 3. Neurontin 100 mg p.o. b.i.d. 4. Cymbalta 60 mg p.o. daily. ALLERGIES TO MEDICATIONS: Include ASPIRIN and FLAGYL. FAMILY HISTORY: Mother had a history of CHF, rheumatoid arthritis. Father had a history of intraabdominal bleeding. SOCIAL HISTORY: She does not smoke, she does not drink. Surrogate decision maker is her sister. REVIEW OF SYSTEMS: There is no documented fevers. Denied having any significant weight change. There was no double vision. There is no ear discharge. Denied having any rhinorrhea. No sore throat, no thyroid enlargement. Denies having any chest pain. There is no orthopnea. There is no nocturnal dyspnea. She does admit to having epigastric discomfort. There was no nausea or vomiting. No dysuria. There was no frequency. She does admit to having dark urine. No seizure. No loss of consciousness. No pruritus and no skin ulcerations. Review of 14 systems completed, all others negative. PHYSICAL EXAMINATION GENERAL: At this time, Mrs. Mcnamara is a 57-year-old female patient. She is sitting in the ED stretcher. She does not appear to be in no acute distress. VITAL SIGNS: Blood pressure 159/89, pulse 67, respirations 20, O2 sat 98%, and temperature 98.9. HEENT: Head atraumatic and normocephalic. Eyes: EOMs are intact. Sclerae anicteric and not pale. NECK: Supple. Throat: Oral mucosa appears to be moist. No oropharyngeal erythema. LUNGS: Clear to auscultation bilaterally. No wheezes, rales, or rhonchi. HEART: Sounds S1 and S2. Regular, rate, and rhythm. No murmurs, rubs, or gallops. ABDOMEN: Soft, it was flat. There was tenderness in the epigastric area, but it was nondistended. Bowel sounds were present. EXTREMITIES: Pulses were 2+ throughout. She is moving all 4 extremities with 5 /5 strength. NEUROLOGIC: She is awake, alert, oriented x3. Tongue midline, pediatric np are equal , no gross focal deficits. SKIN: Grossly intact. However, she did have significant amount of ecchymosis noted to the left arm, also to the right lower thigh area and bruising on her right forearm, which she says started after the initial ED visit. LABORATORY DATA: Revealed a WBC of 7.9, RBC of 4.74, her hemoglobin 2 days ago was 11.5 is now 9.5. She does have a platelet count of 237. The INR, again the last one that was detectable was 11.46, according to [facility] it was greater than 25. PTT was 47.5. The sodium was 138, potassium 4.5 chloride of 108, bicarb 26, BUN 29, creatinine of 0.82, glucose 87, lactic 0.9, calcium 9.1 , mag 2.0, total bili 0.2, AST 19, ALT 14, alk phos 72. CK 153, CK-MB 1.7, troponin 0. CRP of 1.84, BNP at 33, albumin of 4.1, TSH was 5. [place] level was 0.1. So far salicylates are pending. Tylenol negative. Serum alcohol negative. She had chest x-ray obtained today. In my review, I do not appreciate any acute infiltrates. Radiology read it as no active cardiopulmonary disease. I did not appreciate any edema either. EKG today shows a normal sinus rhythm, rate of 61. No ST elevations or T-wave inversions were noted. Old medical records were reviewed. ASSESSMENT AND PLAN: Mrs. Mcnamara is a 57-year-old female patient coming into the ED today with complaints of abnormal lab data. On evaluation was found to have an INR undetectable. We were asked to asked to evaluate for admission. She will be admitted under inpatient status for: 1. Coagulopathy. Etiology is certainly unclear. The patient could have mistakenly unintentionally taken medications such as warfarin possibly poisoning , although she denies this that this would be happening. To her knowledge nobody would be trying to do this to her. Dr. Schroeder did evaluate the patient. We will send off coagulation factors. We are going to give the patient PCC. I am going to place her on the ICU for 2 IVs with frequent H and H monitoring, as her H and H did drop. Hemoccult will be tested as well. Vitamin K was given and in addition to this PCC will be given. I am concerned that she could be bleeding from a GI prescriptive. She was Aleve for a recent dental extraction. I am going to go ahead and put her on PPI therapy, clear liquid diet. GI has been consulted. They would consider endoscopy if her INR does become to an acceptable range, but at this point that is not going to happen. She has been typed and screened. I addition to this, we will transfuse her as needed. 2. History of bipolar. Continue meds as prescribed. 3. History of depression and anxiety. Continue supportive care. 4. DVT prophylaxis. We are just going to order SCDs at this point. Her INR is supratherapeutic. 5. Code status is full code. 6. Fluids, electrolytes, and nutrition. Again clear liquid diet. N.p.o. after midnight. TIME SPENT: On admission 60 minutes, greater than half of the time was spent face- to-face obtaining my history and physical; other half the time was spent going over the plan of care with the patient and implementing the plan of care. I discussed the plan of care with my attending, Dr. Foley who is in agreement. JOE RANGEL, LADARIUS [id number]/[facility] #: [id number] [facility]
--- NOTE | 2018-01-25 16:46 | RAD ---
INDICATION: Abdominal pain. COMPARISON: Comparison is made with a prior study from January 20, 2018. TECHNIQUE: A CT scan of the abdomen and pelvis was performed without intravenous or oral contrast. Contiguous axial sections were obtained from the lung bases through the symphysis pubis. Images were reconstructed in the coronal and sagittal planes. FINDINGS: The lung bases are clear. No pleural effusion is present. The liver and spleen are within normal limits in size without significant focal abnormality on this noncontrast study. No calcified gallstones are seen. The pancreas appears to be within normal limits in size. The adrenal glands and kidneys are normal in size. No renal calculi or hydronephrosis is seen. The aorta is normal in caliber without significant calcific plaque. No significant enlarged retroperitoneal lymph nodes are seen. The stomach, small and large bowel appear nondistended. There is thickening of the wall of the antrum of the stomach which is not seen on the prior exam and may be secondary to contraction or alternatively gastritis. The patient is status post appendectomy. There are scattered diverticuli within the colon which are moderate in degree in the sigmoid colon. There is no evidence for diverticulitis or colitis. The uterus is anteverted and normal in size. No free intraperitoneal air or fluid is seen. No significant focal osseous abnormality is seen. IMPRESSION: THERE IS THICKENING OF THE WALL OF THE ANTRUM OF THE STOMACH WHICH IS NOT SEEN ON A RECENT PRIOR STUDY AND IS LIKELY INCIDENTAL POSSIBLY FROM A CONTRACTION LESS LIKELY GASTRITIS.
[2018-01-25 17:26] LABS: INR 1.2 (0.77-1.02)
[2018-01-25] MEDS: Pantoprazole IV* 80 MG in NS 0.9% 250 ML* 250 ML IVPB SCH (17:46)
[2018-01-25] MEDS: Gabapentin CAP(*) 100 MG PO SCH ×2 (22:32→22:45)
[2018-01-25 22:41] LABS: Hematocrit 28 % (35-47)
[2018-01-25] MEDS: LORazepam TAB(*) 1 MG PO PRN (22:49)
[2018-01-25] MEDS: Gabapentin CAP(*) 300 MG PO SCH (22:49)
[2018-01-26] MEDS: Pantoprazole IV* 80 MG in NS 0.9% 250 ML* 250 ML IVPB SCH ×4 (01:15→15:14)
[2018-01-26 02:12] LABS: Hematocrit 26 % (35-47); Hemoglobin 8.5 g/dl (12.0-16.0)
[2018-01-26 05:57] LABS: ABS Basophils 0 10^3/ul (0-0.2); ABS Eosinophils 0.6 10^3/ul (0-0.6); ABS Lymphocytes 2.1 10^3/ul (1.0-4.8); ABS Monocytes 0.4 10^3/ul (0-0.8); ABS Neutrophils 2.5 10^3/ul (1.5-7.7); ABS Nucleated RBC 0 10^3/ul; Eosinophil % 10.9 % (0-6); Hematocrit 26 % (35-47); Hemoglobin 8.5 g/dl (12.0-16.0); Lymphocyte % 36.2 % (25-47); Mean Corpuscular HGB Conc 33 g/dl (31-36); Mean Corpuscular Hemoglobin 20 pg (27-31); Mean Corpuscular Volume 62 fL (80-97); Mean Platelet Volume 8.7 um3 (7.4-10.4); Nucleated Red Blood Cells % 0; Platelet Count 206 10^3/ul (150-450); Red Blood Count 4.21 10^6/ul (4.0-5.4); Red Cell Distribution Width 17 % (10.5-15); White Blood Count 5.7 10^3/ul (3.5-10.8)
[2018-01-26 05:59] LABS: INR 2.34 (0.77-1.02)
[2018-01-26 06:02] LABS: EGFR Non-African American 62.1 (>60)
[2018-01-26] MEDS: Lithium Carbonate TAB* 300 MG PO SCH (08:32)
[2018-01-26] MEDS: Gabapentin CAP(*) 100 MG PO SCH ×2 (08:32→21:17)
--- NOTE | 2018-01-26 09:45 | PN ---
Subjective Date of Service: 01/26/18 Interval History: Pt states she is feeling well. She denies any pain. No SOB. No diarrhea/ constipation. Objective Active Medications: Acetaminophen (Tylenol Tab*) 650 mg PO Q4H PRN PRN Reason: FEVER/PAIN Gabapentin (Neurontin Cap(*)) 100 mg PO BID [facility] Last Admin: 01/26/18 08:32 Dose: 100 mg Gabapentin (Neurontin Cap(*)) 300 mg PO BEDTIME [facility] Last Admin: 01/25/18 22:49 Dose: 300 mg Pantoprazole Sodium 80 mg/ (Sodium Chloride) 250 mls @ 25 mls/hr IVPB Q10H [facility] Last Admin: 01/26/18 02:43 Dose: 25 mls/hr Eckley Carbonate (Eckley Carbonate Tab*) 300 mg PO DAILY [facility] Last Admin: 01/26/18 08:32 Dose: 300 mg Lorazepam (Ativan Tab(*)) 1 mg PO DAILY PRN PRN Reason: ANXIETY Last Admin: 01/25/18 22:49 Dose: 1 mg Ondansetron HCl (Zofran Inj*) 4 mg IV Q6H PRN PRN Reason: NAUSEA Phytonadione (Vitamin K1 Inj (Adult)*) 5 mg SUBCUT ONCE ONE Stop: 01/26/18 10:01 Vital Signs - 8 hr 01/26/18 01/26/18 01/26/18 04:05 08:30 08:32 Temperature 97.4 F 97.8 F Pulse Rate 61 71 Respiratory 20 14 18 Rate Blood Pressure 103/57 99/52 (mmHg) O2 Sat by Pulse 98 100 Oximetry Oxygen Devices in Use Now: None Appearance: Middle aged female lying in bed, NAD Eyes: No Scleral Icterus Ears/Nose/Mouth/Throat: Mucous Membranes Moist Respiratory: Symmetrical Chest Expansion and Respiratory Effort, Clear to Auscultation Cardiovascular: NL Sounds; No Murmurs; No JVD, RRR, No Edema Abdominal: NL Sounds; No Tenderness; No Distention Extremities: No Clubbing, Cyanosis Skin: No Nodules or Sclerosis, - - scattered bruises, most severe L upper arm Neurological: Alert and Oriented x 3 Result Diagrams: 01/26/18 05:14 01/26/18 05:14 Additional Lab and Data: Lab Results 01/25/18 01/25/18 01/25/18 Range/Units 12:00 12:00 12:00 WBC (3.5-10.8) 10^3/ul RBC (4.0-5.4) 10^6/ul Hgb (12.0-16.0) g/dl Hct (35-47) % MCV (80-97) fL MCH (27-31) pg MCHC (31-36) g/dl RDW (10.5-15) % Plt Count (150-450) 10^3/ul MPV (7.4-10.4) um3 Neut % (Auto) (38-83) % Lymph % (Auto) (25-47) % Pike % (Auto) (0-7) % Eos % (Auto) (0-6) % Baso % (Auto) (0-2) % Absolute Neuts (auto) (1.5-7.7) 10^3/ul Absolute Lymphs (auto) (1.0-4.8) 10^3/ul Absolute Monos (auto) (0-0.8) 10^3/ul Absolute Eos (auto) (0-0.6) 10^3/ul Absolute Basos (auto) (0-0.2) 10^3/ul Absolute Nucleated RBC 10^3/ul Nucleated RBC % INR (Anticoag Therapy) TNP APTT 47.5 H (26.0-36.3) seconds PT Patient/Normal 1:1 PT Pat/Norm 1:1 1 Hr PTT Normal Plasma 1 Hr PTT Patient/Normal 1:1 Mixing Interpretation Sodium 138 L (139-145) mmol/L Potassium 4.5 (3.5-5.0) mmol/L Chloride 108 (101-111) mmol/L Carbon Dioxide 26 (22-32) mmol/L Anion Gap 4 (2-11) mmol/L BUN 29 H (6-24) mg/dL Creatinine 0.82 (0.51-0.95) mg/dL Est GFR ( Amer) 92.4 (>60) Est GFR (Non-Af Amer) 71.9 (>60) BUN/Creatinine Ratio 35.4 H (8-20) Glucose 87 (70-100) mg/dL Lactic Acid (0.5-2.0) mmol/L Calcium 9.1 (8.6-10.3) mg/dL Magnesium 2.0 (1.9-2.7) mg/dL Total Bilirubin 0.20 (0.2-1.0) mg/dL AST 19 (13-39) U/L ALT 14 (7-52) U/L Alkaline Phosphatase 72 (34-104) U/L Total Creatine Kinase 153 (10-223) U/L CK-MB (CK-2) 1.7 (0.6-6.3) ng/mL Troponin I 0.00 (<0.04) ng/mL C-Reactive Protein 1.84 (< 5.00) mg/L B-Natriuretic Peptide 33 ( - 100) pg/mL Total Protein 6.7 (6.4-8.9) g/dL Albumin 4.1 (3.2-5.2) g/dL Globulin 2.6 (2-4) g/dL Albumin/Globulin Ratio 1.6 (1-3) Lipase 16 (11.0-82.0) U/L TSH 5.00 (0.34-5.60) mcIU/mL Salicylates < 2.50 (<30) mg/dL Acetaminophen < 15 mcg/mL Eckley 0.10 L (0.6-1.2) mmol/L Serum Alcohol < 10 (<10) mg/dL Blood Type Antibody Screen 01/25/18 01/25/18 01/25/18 Range/Units 12:00 12:00 12:00 WBC 7.9 (3.5-10.8) 10^3/ul RBC 4.74 (4.0-5.4) 10^6/ul Hgb 9.5 L (12.0-16.0) g/dl Hct 30 L (35-47) % MCV 63 L (80-97) fL MCH 20 L (27-31) pg MCHC 32 (31-36) g/dl RDW 17 H (10.5-15) % Plt Count 237 (150-450) 10^3/ul MPV 8.4 (7.4-10.4) um3 Neut % (Auto) 73.3 (38-83) % Lymph % (Auto) 14.0 L (25-47) % Pike % (Auto) 5.9 (0-7) % Eos % (Auto) 6.1 H (0-6) % Baso % (Auto) 0.7 (0-2) % Absolute Neuts (auto) 5.8 (1.5-7.7) 10^3/ul Absolute Lymphs (auto) 1.1 (1.0-4.8) 10^3/ul Absolute Monos (auto) 0.5 (0-0.8) 10^3/ul Absolute Eos (auto) 0.5 (0-0.6) 10^3/ul Absolute Basos (auto) 0.1 (0-0.2) 10^3/ul Absolute Nucleated RBC 0 10^3/ul Nucleated RBC % 0 INR (Anticoag Therapy) APTT (26.0-36.3) seconds PT Patient/Normal 1:1 PT Pat/Norm 1:1 1 Hr PTT Normal Plasma 1 Hr PTT Patient/Normal 1:1 Mixing Interpretation Sodium (139-145) mmol/L Potassium (3.5-5.0) mmol/L Chloride (101-111) mmol/L Carbon Dioxide (22-32) mmol/L Anion Gap (2-11) mmol/L BUN (6-24) mg/dL Creatinine (0.51-0.95) mg/dL Est GFR ( Amer) (>60) Est GFR (Non-Af Amer) (>60) BUN/Creatinine Ratio (8-20) Glucose (70-100) mg/dL Lactic Acid 0.9 (0.5-2.0) mmol/L Calcium (8.6-10.3) mg/dL Magnesium (1.9-2.7) mg/dL Total Bilirubin (0.2-1.0) mg/dL AST (13-39) U/L ALT (7-52) U/L Alkaline Phosphatase (34-104) U/L Total Creatine Kinase (10-223) U/L CK-MB (CK-2) (0.6-6.3) ng/mL Troponin I (<0.04) ng/mL C-Reactive Protein (< 5.00) mg/L B-Natriuretic Peptide ( - 100) pg/mL Total Protein (6.4-8.9) g/dL Albumin (3.2-5.2) g/dL Globulin (2-4) g/dL Albumin/Globulin Ratio (1-3) Lipase (11.0-82.0) U/L TSH (0.34-5.60) mcIU/mL Salicylates (<30) mg/dL Acetaminophen mcg/mL Eckley (0.6-1.2) mmol/L Serum Alcohol (<10) mg/dL Blood Type AB Positive Antibody Screen Negative 01/25/18 Range/Units 12:00 WBC (3.5-10.8) 10^3/ul RBC (4.0-5.4) 10^6/ul Hgb (12.0-16.0) g/dl Hct (35-47) % MCV (80-97) fL MCH (27-31) pg MCHC (31-36) g/dl RDW (10.5-15) % Plt Count (150-450) 10^3/ul MPV (7.4-10.4) um3 Neut % (Auto) (38-83) % Lymph % (Auto) (25-47) % Pike % (Auto) (0-7) % Eos % (Auto) (0-6) % Baso % (Auto) (0-2) % Absolute Neuts (auto) (1.5-7.7) 10^3/ul Absolute Lymphs (auto) (1.0-4.8) 10^3/ul Absolute Monos (auto) (0-0.8) 10^3/ul Absolute Eos (auto) (0-0.6) 10^3/ul Absolute Basos (auto) (0-0.2) 10^3/ul Absolute Nucleated RBC 10^3/ul Nucleated RBC % INR (Anticoag Therapy) TNP APTT Pending (26.0-36.3) seconds PT Patient/Normal 1:1 Pending PT Pat/Norm 1:1 1 Hr Pending PTT Normal Plasma 1 Hr Pending PTT Patient/Normal 1:1 Pending Mixing Interpretation Pending Sodium (139-145) mmol/L Potassium (3.5-5.0) mmol/L Chloride (101-111) mmol/L Carbon Dioxide (22-32) mmol/L Anion Gap (2-11) mmol/L BUN (6-24) mg/dL Creatinine (0.51-0.95) mg/dL Est GFR ( Amer) (>60) Est GFR (Non-Af Amer) (>60) BUN/Creatinine Ratio (8-20) Glucose (70-100) mg/dL Lactic Acid (0.5-2.0) mmol/L Calcium (8.6-10.3) mg/dL Magnesium (1.9-2.7) mg/dL Total Bilirubin (0.2-1.0) mg/dL AST (13-39) U/L ALT (7-52) U/L Alkaline Phosphatase (34-104) U/L Total Creatine Kinase (10-223) U/L CK-MB (CK-2) (0.6-6.3) ng/mL Troponin I (<0.04) ng/mL C-Reactive Protein (< 5.00) mg/L B-Natriuretic Peptide ( - 100) pg/mL Total Protein (6.4-8.9) g/dL Albumin (3.2-5.2) g/dL Globulin (2-4) g/dL Albumin/Globulin Ratio (1-3) Lipase (11.0-82.0) U/L TSH (0.34-5.60) mcIU/mL Salicylates (<30) mg/dL Acetaminophen mcg/mL Eckley (0.6-1.2) mmol/L Serum Alcohol (<10) mg/dL Blood Type Antibody Screen Microbiology and Other Data: Microbiology 01/25/18 15:56 Nasal Screen MRSA (PCR)(SCOTTIE) - Final Nasal Mrsa Not Detected Assess/Plan/Problems-Billing Ms Mcnamara is a 57 yo F who has a h/o bipolar disorder, depression and anxiety who presented to the ER after presenting at Dr. Schroeder's office for concerns of a markedly elevated INR and 2 point drop in H/H. - Patient Problems (1) Elevated INR Current Visit: Yes Status: Acute Code(s): R79.1 - ABNORMAL COAGULATION PROFILE SNOMED Code(s): 475437839 Comment: The etiology behind the patient's elevated INR is not completely clear but the suspicion is that the patient may have ingested coumadin or other artificial vitamin K dependant inhibitor as her mixing study almost completely corrects. An acquired factor deficiency is also a possiblitiy. Factor levels and warfarin level have been sent to [facility]. Her INR improved dramatically after the dose of kcentra yesterday but this AM her INR has increased further. Will recheck INR this afternoon. She is going to be receiving another dose of vitamin K this AM prior to her EGD. (2) Anemia Current Visit: Yes Status: Acute Code(s): D64.9 - ANEMIA, UNSPECIFIED SNOMED Code(s): 619724285 Comment: The patient is chronically anemic secondary to a h/o thalassemia but she had a 2 point drop in her H/H from 01/23/18 to 01/25/18. She had been using significant doses of aleve post dental extraction and could potentially have gastritis vs ulcer. Continue IV PPI for now. (3) DVT prophylaxis Current Visit: Yes Status: Acute Code(s): UAN6376 - SNOMED Code(s): 306712744 Comment: SCDs (4) Full code status Current Visit: Yes Status: Acute Code(s): Z78.9 - OTHER SPECIFIED HEALTH STATUS SNOMED Code(s): 760731944
[2018-01-26] MEDS ORDERED: Phytonadione INJ (Adult)* 10 MG/ML 1 ML AMP SUBCUT ONE (10:00)
[2018-01-26] MEDS ORDERED: fentaNYL* 50 MCG/ML 2 ML VIAL (100 MCG VIAL) ONE (10:55)
[2018-01-26] MEDS ORDERED: Midazolam* 1 MG/ML 10 ML VIAL (10 MG) ONE (10:55)
[2018-01-26] MEDS ORDERED: Phytonadione Oral Solution* 5 MG/25 ML UDC PO ONE (11:00)
--- NOTE | 2018-01-26 13:17 | PRO ---
CC: Dr. Emily Cantrell DATE OF PROCEDURE: 01/26/2018. REFERRING PHYSICIAN: Dr. Emily Cantrell. PROCEDURE PERFORMED: EGD. PREOPERATIVE DIAGNOSIS: Xrlyd-vtoac-mtet-old female who presented to the hospital with a markedly el evated INR of greater than 25. The patient was admitted with a hematocrit of 30 and an MCV of 63. H er hematocrit this morning is 26 with an MCV of 62. There have been no signs of active GI bleeding. She was guaiac positive. The patient was taking abundant Aleve approximately two weeks ago after den [employer] work. The etiology of her elevated INR is unknown at this time. Her INR has been corrected. La st evening at 5:00 p.m. it was 1.2; this morning at 5:00 a.m. it was 2.34. The patient received an a dditional dose of vitamin K 5 mg prior to endoscopy. POSTOPERATIVE DIAGNOSES: 1. Normal esophagus. 2. Erosive gastritis of the antrum. No active bleeding noted, but suspect source of blood loss. 3. Normal small bowel. No old or new blood present. PROCEDURE MEDICATIONS: Versed 3 mg IV and Fentanyl 50 mcg IV. INSTRUMENT: GF-190 Olympus high definition gastroscope. PROCEDURE: Informed consent was obtained prior to performing this procedure. The instrument was int roduced into the mouth and passed through the cervical esophagus under direct visualization. The ins trument was then advanced down the esophagus. The esophagus was normal in its entirety. The scope wa s then passed into the gastric cardia, fundus, body, and antrum. The proximal stomach was normal. I n the antrum, there was evidence of erosive gastritis. I suspect with her markedly elevated INR, thi s was likely the source of some blood loss. There is no old or new blood present at this time and no signs of active bleeding or stigmata of recent bleeding. No ulceration is noted. The scope was pas sed through the pylorus and duodenal bulb and descending duodenum, both of which were normal. The in strument was withdrawn from the patient. The patient tolerated the procedure well and there were no complications. RECOMMENDATIONS: I will place the patient on a regular diet. She should remain on IV Pantoprazole drip as long as she is in the hospital and should be discharged on Protonix 40 mg b.i.d . for at least three months. The patient also had hematuria which may be an additional source of her anemia. Any further questions, please call. [id number]/[facility] #: [id number]
[2018-01-26 15:26] LABS: Thrombin Time 17 sec (15 - 23)
[2018-01-26 16:14] LABS: INR 3.69 (0.77-1.02)
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
[2018-01-26] MEDS: Gabapentin CAP(*) 300 MG PO SCH (21:17)
[2018-01-27] MEDS: LORazepam TAB(*) 1 MG PO PRN ×2 (00:29→11:14)
[2018-01-27] MEDS: Pantoprazole IV* 80 MG in NS 0.9% 250 ML* 250 ML IVPB SCH (01:33)
[2018-01-27 06:04] LABS: Hematocrit 28 % (35-47); Hemoglobin 9.2 g/dl (12.0-16.0); Mean Corpuscular HGB Conc 33 g/dl (31-36); Mean Corpuscular Hemoglobin 21 pg (27-31); Mean Corpuscular Volume 62 fL (80-97); Mean Platelet Volume 9.1 um3 (7.4-10.4); Platelet Count 215 10^3/ul (150-450); Red Blood Count 4.47 10^6/ul (4.0-5.4); Red Cell Distribution Width 18 % (10.5-15); White Blood Count 6.7 10^3/ul (3.5-10.8)
[2018-01-27 06:07] LABS: INR 3.58 (0.77-1.02)
[2018-01-27 06:14] LABS: EGFR Non-African American 57.8 (>60)
[2018-01-27] MEDS ORDERED: Phytonadione Oral Solution* 5 MG/25 ML UDC PO ONE (07:53)
--- NOTE | 2018-01-27 07:58 | PN ---
Progress Note - Progress Note Date of Service: 01/27/18 SOAP: Subjective: feels sleepy today. continues to deny any ingestion. Objective: Vital Signs Temp Pulse Resp BP Pulse Ox 98.6 F 58 18 109/66 100 01/27/18 03:25 01/27/18 03:25 01/27/18 07:10 01/27/18 03:25 01/27/18 03:25 perr eomi op moist CTA bl s1 s2nl soft nt +Bs marked ecchymoses A+Ox 3 Laboratory Results - last 24 hr 01/25/18 01/26/18 01/27/18 13:55 15:50 05:21 WBC 6.7 RBC 4.47 Hgb 9.2 L Hct 28 L MCV 62 L MCH 21 L MCHC 33 RDW 18 H Plt Count 215 MPV 9.1 INR (Anticoag Therapy) 3.69 H Thrombin Time 17 Factor II 27 L Factor VII Activity <1 L Factor VIII Activity 155 Factor X 15 L Sodium Potassium Chloride Carbon Dioxide Anion Gap BUN Creatinine Est GFR ( Amer) Est GFR (Non-Af Amer) BUN/Creatinine Ratio Glucose Calcium 01/27/18 01/27/18 05:22 05:22 WBC RBC Hgb Hct MCV MCH MCHC RDW Plt Count MPV INR (Anticoag Therapy) 3.58 H Thrombin Time Factor II Factor VII Activity Factor VIII Activity Factor X Sodium 140 Potassium 3.8 Chloride 107 Carbon Dioxide 29 Anion Gap 4 BUN 21 Creatinine 0.99 H Est GFR ( Amer) 74.4 Est GFR (Non-Af Amer) 57.8 BUN/Creatinine Ratio 21.2 H Glucose 100 Calcium 9.0 Assessment: 57 yo F presenting with a markedly elevated INR. Her mixing studies and her factor levels are diagnostic of a warfarin or warfarin-like substance ingestion. Her vitamin K dependent factors were the only affected as evidenced by a normal factor VIII activity. She continues to deny any knowledge of this. As it is unclear how much or what was ingested, it is hard to say when it will completely reverse. I would give her another dose of vitamin K PO today, and assuming no ongoing ingestion she should be safe from an INR perspective to go home, as long as there is no evidence for ongoing blood loss (stable hb today supports this). She should follow up with her primary as an outpatient. I will continue to follow her labs for a warfarin level and brodifacoum level.
[2018-01-27] MEDS: Lithium Carbonate TAB* 300 MG PO SCH (08:53)
[2018-01-27] MEDS: Gabapentin CAP(*) 100 MG PO SCH (08:53)
[2018-01-27 11:29] VITALS: BP 135/71
--- NOTE | 2018-01-27 19:00 | DS ---
CC: Dr. Cantrell* DISCHARGE SUMMARY: DATE OF ADMISSION: 01/25/18 DATE OF DISCHARGE: 01/27/18 PRIMARY CARE PROVIDER: Dr. Cantrell. GLASS CUT OFF TENDER: Dr. Schroeder. PRINCIPAL DIAGNOSES: 1. Markedly elevated INR, likely secondary to ingestion of Coumadin or Coumadin - like substance. 2. Subacute blood loss anemia. SECONDARY DIAGNOSES: 1. Bipolar disorder. 2. Depression/anxiety. DISCHARGE MEDICATIONS: 1. [place] carbonate 300 mg p.o. daily. 2. Lorazepam 1 mg p.o. daily p.r.n. anxiety. 3. Gabapentin 100 mg p.o. b.i.d. 4. Duloxetine DR 60 mg p.o. daily. 5. Vitamin K 5 mg p.o. daily. HOSPITAL COURSE: Ms. Mcnamara is a 57-year-old female, who presented to the emergency room on 01/25/18 after being referred by Dr. Schroeder's office for concerns of markedly elevated INR (un-reportable) and a 2-point drop in hemoglobin. The patient reports 4 weeks prior to admission, she had dental extractions complicated by continued bleeding and need for sutures. She then took Advil twice daily x2 weeks for pain. She then developed abdominal pain and shortness of breath. She presented to the emergency room on 01/20/[address] abdomen and pelvis, which was unremarkable and an elevated INR in the ER. The INR was elevated at 11 and this was confirmed on repeat. She received IM vitamin K and was told to stop taking ginkgo biloba, which was the supplement she was taking. She then went to urgent care on 01/22/18 with worsening abdominal pain. There, she also reported having blood-tinged vomit. She was advised to go to the ER and verbally agreed to do so, however, went home. Repeat blood work on the day prior to admission again showed a markedly elevated INR (too high to report) and was recommended to go to the emergency room, but refused. She was then referred to Dr. Schroeder's office; however, she was directed to emergently go to the emergency room given a 2-point drop in her hemoglobin. In the ER, the patient again was found to have an INR that was too high to be reported. A mixing study was performed, which showed almost near complete correction. Dr. Schroeder saw the patient in consultation. She felt that the patient most definitely ingested or was poisoned with a vitamin K antagonist. Coagulation factor levels were sent. At this point, factor VII activity is less than 1% where normal is 65% to 180%. Her factor IX level was pending. Her factor X level is also low at 15, where normal is 70% to 150%. Her factor VIII activity is completely normal. Given the fact that it appears that only her vitamin K dependent factors have been affected, it seems as though the patient most likely ingested Coumadin or another vitamin K antagonist. A warfarin level has been sent to [facility]. Additionally, brodifacoum (rat poison) level has been sent to outside lab to be run. The patient has received several doses of vitamin K as well as a single dose of Kcentra. The patient's INR on the day of discharge is elevated at 3.58, though it is down slightly from the day prior where it was 3.69. It has been recommended that the patient continue on vitamin K 5 mg daily until her warfarin level and brodifacoum levels return. In terms of drop in her hemoglobin, the patient was also seen in consultation by GI. She underwent upper endoscopy. This revealed erosive gastritis of the antrum. No active bleeding was noted, but it was suspected source of blood loss. This was likely secondary to the Advil use. The patient has been recommended to discontinue Advil use moving forward. The patient's hemoglobin has remained stable over the course of her hospitalization. The patient adamantly denies taking Coumadin inappropriately or poisoning herself. There are concerns that, however, the patient may be suffering from a factitious disorder. She was seen in consultation by Dr. Rogers, who felt she was not an acute risk to herself. It was recommended she be referred back to Dr. Yen at [facility]. If the patient is rehospitalized with similar elevated INR, at that point it was felt there would be more grounds to treat her involuntarily on the inpatient behavioral science unit for factitious disorder. At this point, the patient was felt to be stable for discharge home. A repeat INR has been ordered for 01/30/18. Again, the patient is to remain on vitamin K 5 mg daily. She is to also follow up with Dr. Cantrell in the next [address] Schroeder will be following up the pending factor levels as well as the warfarin and brodifacoum levels. FOLLOWUP CONCERNS: The patient is being discharged home today, 01/27/18. ACTIVITY LEVEL: As tolerated. DIET: Regular. CONDITION ON DISCHARGE: Stable. TIME SPENT: Thirty-five minutes was spent discharging this patient. [id number]/CPS #: [id number] MTDD
== END 2018-01-27 12:40 | disposition home or self-care (01) | DRG 917 ==
LOC: ED 11:02 → UNDOADMOB 13:34 → MEDTELE 13:34 → ICU 14:03 → MEDTELE 14:56 → ICU 14:56 → MEDTELE 21:45
PROVIDERS: ADMIT Internal Medicine; ATTEND Hospitalist
PROC: 0DJ08ZZ Inspection of Upper Intestinal Tract, Via Natural or Artificial Opening Endoscopic (ICD-10-PCS; principal; 2018-01-27)
PROC: 30283B1 Transfusion of Nonautologous 4-Factor Prothrombin Complex Concentrate into Vein, Percutaneous Approach (ICD-10-PCS; 2018-01-27)
DX: T45.512A Poisoning by anticoagulants, intentional self-harm, initial encounter (principal); K29.61 Other gastritis with bleeding; D62 Acute posthemorrhagic anemia; F68.10 Factitious disorder imposed on self, unspecified; T45.7X2A Poisoning by anticoagulant antagonists, vitamin K and other coagulants, intentional self-harm, initial encounter; S50.12XA Contusion of left forearm, initial encounter; S50.11XA Contusion of right forearm, initial encounter; X58.XXXA Exposure to other specified factors, initial encounter; F41.9 Anxiety disorder, unspecified; F43.10 Post-traumatic stress disorder, unspecified; S40.021A Contusion of right upper arm, initial encounter; S70.11XA Contusion of right thigh, initial encounter; T39.315A Adverse effect of propionic acid derivatives, initial encounter; D56.3 Thalassemia minor; F31.9 Bipolar disorder, unspecified; Y92.9 Unspecified place or not applicable; Z88.6 Allergy status to analgesic agent; Z72.89 Other problems related to lifestyle; Z80.9 Family history of malignant neoplasm, unspecified; Z87.891 Personal history of nicotine dependence; Z88.1 Allergy status to other antibiotic agents; Z82.49 Family history of ischemic heart disease and other diseases of the circulatory system; Z82.61 Family history of arthritis
CPT/HCPCS: 36415; 71045; 74176; 80048; 80053; 80178; 80299; 80307; 80320; 80329; 80500; 81003; 81015; 82270; 82272; 82550; 82553; 83605; 83690; 83735; 83880; 84443; 84484; 85014; 85018; 85025; 85027; 85210; 85230; 85240; 85250; 85260; 85270; 85280; 85610; 85670; 85730; 86140; 86850; 86900; 86901; 87086; 87641; 93005; 99156; 99223; 99232; 99284; A9270-GY; C9132; G0480; J2250; J3010